=== PATIENT | female | born 1955 | race Caucasian/White ===

== ENCOUNTER 2017-07-24 07:52 | Day surgery (SDC) | payer MEDICARE, MEDICAID ==
[2017-07-24] MEDS ORDERED: Dextrose 5%-Lactated Ringers 1,000 ML IV SCH (08:30)
[2017-07-24] MEDS ORDERED: Glycopyrrolate 0.2 MG/ML 2 ML SDV IVPUSH ONE (09:00)
[2017-07-24] MEDS ORDERED: Midazolam 1 MG/ML 2 ML SDV ONE (09:25)
[2017-07-24] MEDS ORDERED: Propofol 200 MG/20 ML SDV ONE (09:25)
[2017-07-24] MEDS ORDERED: fentaNYL 100 MCG/2 ML SDV ONE (09:25)
[2017-07-24 10:47] VITALS: BP 78/47
--- NOTE | 2017-07-24 16:21 | OR ---
DATE OF PROCEDURE: 07/24/2017 PREOPERATIVE DIAGNOSIS: History of recurrent fungal esophagitis. POSTOPERATIVE DIAGNOSIS: Recurrent fungal esophagitis. OPERATIVE PROCEDURE: Upper GI endoscopy with washings for fungal stain and culture. ANESTHESIA: IV sedation. INDICATION FOR PROCEDURE: This is a 61-year-old presenting with a history of esophagitis with multiple episodes of antifungal treatment. She would undergo a GI endoscopy to see if she has persistent recurrent fungal esophagitis at this time. Potential risks including bleeding and perforation were reviewed, and the patient wishes to proceed. DETAILS OF PROCEDURE: The patient was taken to the operating room and placed in a left lateral decubitus position. IV sedation was administered, after which the upper GI endoscope was passed orally through the length of the esophagus and from there through the gastrojejunostomy and the small remaining gastric pouch and from there into the Ramiro limb roughly 20 cm. The findings included normal hypopharynx, larynx, and upper esophageal sphincter within the esophageal body, however, there was a diffuse fungal growth with multiple implants of overgrowth. This was associated with no gross inflammation. This continued down to more or less the length of the esophagus and at the gastrojejunostomy, gastric pouch, and Ramiro limbs, otherwise normal. At this point, saline was injected into the esophagus and the fluid aspirated and will be sent for fungal stain and culture. We will also ask that fungal sensitivities be obtained if felt appropriate by the lab based depending on the organism potentially cultured. The patient was taken to the recovery room in satisfactory condition. The plan will be to begin the patient on a course Mycostatin swish and swallow. The family does not recall her being on this, we will do that for 3 weeks and then in 4 weeks we will follow up that with a 2nd endoscopy to see if it is clear to that point. Kenneth White MD /[id number]
== END 2017-07-24 10:55 | disposition other institution (70) ==
LOC: JP.SDS 07:52
PROVIDERS: ATTEND Surgery
DX: K20.8 Other esophagitis (principal); Z88.8 Allergy status to other drugs, medicaments and biological substances
CPT/HCPCS: 43235; 87015; 87070; 87102; 87116; 87186; 87205; 87206; 87220; J2250; J2704; J3010; J7042; 87077; J3490

== ENCOUNTER 2017-08-21 08:07 | Day surgery (SDC) | payer MEDICARE, MEDICAID ==
[~2017-08-21 08:07] MED LIST: Midazolam 1 MG/ML 2 ML SDV ONE; Propofol 200 MG/20 ML SDV ONE; fentaNYL 100 MCG/2 ML SDV ONE
[2017-08-21] MEDS ORDERED: Dextrose 5%-Lactated Ringers 1,000 ML IV SCH (08:30)
[2017-08-21] MEDS ORDERED: Glycopyrrolate 0.2 MG/ML 2 ML SDV IVPUSH ONE (09:30)
[2017-08-21] MEDS ORDERED: Fluconazole/Normal Saline 400 MG in Premix Bag 1 BAG IV ONE (11:00)
[2017-08-21 12:00] VITALS: BP 83/41
--- NOTE | 2017-08-24 13:05 | OR ---
DATE OF PROCEDURE: 08/21/2017 PREOPERATIVE DIAGNOSIS: Probable persistent fungal esophagitis. POSTOPERATIVE DIAGNOSIS: Extensive fungal esophagitis. PROCEDURES: Upper GI endoscopy with evacuation of esophageal washings for fungal cultures. ANESTHESIA: IV sedation. INDICATION FOR PROCEDURE: The patient is undergoing followup endoscopy to see to what extent her fungal esophagitis has cleared. She has been off any antifungal medication for a period of time now, after having gone through a course of Mycostatin swish and swallow. This has been a problem. It has been present for decades with previous extensive workups regarding the fungal esophagitis, not being able to result in a correction of the problem. The plan is to do an upper GI endoscopy with biopsies and/or evacuation of the esophageal contents as indicated. Potential risks including bleeding and perforation were discussed, and the patient wishes to proceed. DETAILS OF PROCEDURE: The patient was taken to the operating room, placed in a left lateral decubitus position. IV sedation was administered, after which upper GI endoscope was passed orally through the length of the esophagus and into the gastric pouch, from there roughly 20 cm into the Ramiro limb. The hypopharynx, larynx, upper esophageal sphincter were unremarkable. The patient did have some hint of some thrush within the tongue; however, as one entered the esophagus, there was a quite fulminant overgrowth of fungus through the length of the esophagus. This became absent at the esophagogastric junction and the gastric pouch, gastrojejunostomy, and remainder of the Ramiro limb were unremarkable. At this point, some saline was injected into the esophagus and some of that fluid was evacuated, thus obtaining a fungal culture. We will plan to send this for a formal fungal culture and sensitivity to see if there is something that may be identified in terms of resistance of this organism as well as specific ID which may guide subsequent therapy. The scope was then withdrawn. The procedure then concluded. The patient's caregiver reports that in the past, long-term use of clotrimazole lozenges were effective in terms of maintaining the patient in a minimally symptomatic status. The plan will be to start that with a 10 mg dose t.i.d. as well as concurrently running a course of Diflucan 200 mg a day for 10 days and she will be following up with her personal physician. The caregiver at this point would prefer just to keep the patient on long-term clotrimazole rather than proceeding with followup endoscopy which seems to be reasonable given the previous history and will be following up with her personal physician as well as the gastroenterology staff in [place]. We will contact the patient and caregiver should there be something of note in terms of the fungal cultures and sensitivity. Kenneth White MD /[id number]
== END 2017-08-21 13:20 | disposition home or self-care (01) ==
LOC: JP.SDS 08:07
PROVIDERS: ATTEND Surgery
DX: K20.9 Esophagitis, unspecified (principal); B49 Unspecified mycosis; K21.9 Gastro-esophageal reflux disease without esophagitis; F17.210 Nicotine dependence, cigarettes, uncomplicated; J30.1 Allergic rhinitis due to pollen; Z98.890 Other specified postprocedural states
CPT/HCPCS: 43235; 87102; 87220; J1450; J2250; J2704; J3010; J7042; J3490

== ENCOUNTER 2018-02-05 06:46 | Inpatient (IN) | payer MEDICARE, MEDICAID ==
[2018-02-05] MEDS ORDERED: Bupivacaine 0.5%/EPINEPHrine 1:200,000 50 ML MDV ONE (06:51)
[2018-02-05] MEDS ORDERED: Acetaminophen 500 MG Tab PO ONE (07:15)
[2018-02-05] MEDS ORDERED: DEXAMETHASONE NERVRT SCH ×4 (08:00)
[2018-02-05] MEDS ORDERED: SODIUM CHLORIDE 0.9% NERVRT SCH ×4 (08:00)
[2018-02-05] MEDS ORDERED: ROPIVACAINE NERVRT SCH ×4 (08:00)
[2018-02-05] MEDS ORDERED: EPINEPHRINE NERVRT SCH ×4 (08:00)
[2018-02-05] MEDS ORDERED: Ketamine 500 MG/5 ML MDV IV SCH (08:00)
[2018-02-05] MEDS: Dextrose 5%-Lactated Ringers 1,000 ML IV SCH ×2 (08:09→21:05)
[2018-02-05] MEDS ORDERED: Midazolam 1 MG/ML 2 ML SDV ONE (08:40)
[2018-02-05] MEDS ORDERED: fentaNYL 250 MCG/5 ML SDV ONE (08:40)
[2018-02-05] MEDS ORDERED: Rocuronium 50 MG/5 ML Vial ONE (08:52)
[2018-02-05] MEDS ORDERED: Dexamethasone 4 MG/ML SDV ONE (08:52)
[2018-02-05] MEDS ORDERED: Ondansetron 4 MG/2 ML SDV ONE (08:52)
[2018-02-05] MEDS ORDERED: Neostigmine Methylsulfate 1 MG/ML 5 ML Syringe ONE (08:52)
[2018-02-05] MEDS ORDERED: Propofol 200 MG/20 ML SDV ONE (08:52)
[2018-02-05] MEDS ORDERED: Glycopyrrolate 0.2 MG/ML 5 ML MDV ONE (08:52)
[2018-02-05] MEDS ORDERED: cefOXitin 2 GM in Sodium Chloride 0.9% 50 ML IV ONE (09:00)
[2018-02-05] MEDS ORDERED: HYDROmorphone/Normal Saline 15 MG/30 ML PCA IV PRN (09:50)
[2018-02-05] MEDS ORDERED: Naloxone 0.4 MG/ML SDV IV PRN (09:51)
[2018-02-05] MEDS ORDERED: Ondansetron 4 MG/2 ML SDV IV PRN (11:08)
[2018-02-05] MEDS: Megestrol Susp 40 MG/ML ML (240 ML Bottle) PO SCH (12:19)
[2018-02-05] MEDS: Polyethylene Glycol 3350 Powder 17 GM Packet PO SCH (12:19)
[2018-02-05] MEDS: ceFAZolin 1 GM in Premix Bag 1 BAG IV SCH ×2 (13:58→21:06)
[2018-02-05] MEDS: LORazepam 1 MG Tab PO SCH (16:43)
[2018-02-05] MEDS: Donepezil 10 MG Tab PO SCH (21:08)
[2018-02-05] MEDS: QUETIAPINE PO SCH ×2 (21:08)
[2018-02-06] MEDS: ceFAZolin 1 GM in Premix Bag 1 BAG IV SCH (05:24)
[2018-02-06] MEDS: Dextrose 5%-Lactated Ringers 1,000 ML IV SCH ×2 (08:07→17:24)
[2018-02-06] MEDS: LORazepam 1 MG Tab PO SCH ×2 (08:08→17:22)
[2018-02-06] MEDS: Megestrol Susp 40 MG/ML ML (240 ML Bottle) PO SCH (08:08)
[2018-02-06] MEDS: Polyethylene Glycol 3350 Powder 17 GM Packet PO SCH (08:16)
[2018-02-06] MEDS ORDERED: diphenhydrAMINE 25 MG Cap PO PRN (08:18)
[2018-02-06] MEDS ORDERED: Acetaminophen 325 MG Tab PO PRN (08:21)
[2018-02-06] MEDS ORDERED: Polyethylene Glycol 3350 Powder 17 GM Packet PO PRN (08:22)
[2018-02-06] MEDS ORDERED: Dicyclomine 10 MG Cap PO PRN (08:22)
[2018-02-06] MEDS ORDERED: Ondansetron 4 MG Tab.DIS PO PRN (08:23)
--- NOTE | 2018-02-06 08:47 | PCM.PN ---
- General Info Date of Service: 02/06/18 Admission Dx/Problem (Free Text): Abnormal Weight Loss Subjective Update: Patient has had a total of 650 mL out of G tube. 1100 mL PO intake per nursing. Patient reports that she is feeling better today. Has had some nausea with dry heaves over night. Is tolerating diet so far this morning. Functional Status: Reports: Pain Controlled (notes mild discomfort), Tolerating Diet, Ambulating, Urinating - Review of Systems General: Reports: Chills HEENT: Reports: Other (dry mouth) Pulmonary: Reports: No Symptoms Cardiovascular: Reports: No Symptoms Gastrointestinal: Reports: Abdominal Pain, Nausea Genitourinary: Reports: No Symptoms Musculoskeletal: Reports: No Symptoms Skin: Reports: No Symptoms Neurological: Reports: No Symptoms Psychiatric: Reports: No Symptoms - Patient Data Vitals - Most Recent: Last Vital Signs Temp 36.6 C 02/06/18 07:34 Pulse 71 02/06/18 07:34 Resp 16 02/06/18 07:34 BP 102/50 L 02/06/18 07:34 Pulse Ox 99 02/06/18 08:34 Weight - Most Recent: 44.906 kg I&O - Last 24 Hours: Intake & Output 02/05/18 02/06/18 02/06/18 22:59 06:59 14:59 Intake Total 1716 1258 Output Total 300 750 500 Balance 1416 508 -500 Med Orders - Current: Current Medications Acetaminophen (Tylenol) 650 mg PO Q4H PRN PRN Reason: Pain Cetirizine HCl (Zyrtec) 10 mg PO DAILY [facility]ER[facility] Dicyclomine HCl (Bentyl) 10 mg PO Q4H PRN PRN Reason: Gas Diphenhydramine HCl (Benadryl) 50 mg PO Q6H PRN PRN Reason: Itching Donepezil HCl (Aricept) 5 mg PO BEDTIME [facility] Last Admin: 02/05/18 21:08 Dose: 5 mg Hydromorphone HCl (Dilaudid) 2 - 4 mg PO Q4H PRN PRN Reason: Pain Dextrose/Lactated Ringer's (Dextrose 5%-Lactated Ringers) 1,000 mls @ 100 mls/ hr IV ASDIRECTED [facility] Last Admin: 02/06/18 08:07 Dose: 100 mls/hr Levothyroxine Sodium (Synthroid) 50 mcg PO ACBRK [facility] Lorazepam (Ativan) 1 mg PO BID@0900,1600 [facility] Last Admin: 02/06/18 08:08 Dose: 1 mg Megestrol Acetate (Megace 40 Mg/Ml Susp) 400 mg PO DAILY [facility] Last Admin: 02/06/18 08:08 Dose: 400 mg Non-Formulary Medication (Docusate Sodium [Dok]) 200 mg PO BID [facility] Non-Formulary Medication (Lamotrigine [Lamictal]) 75 mg PO BID [facility] Non-Formulary Medication (Timolol [Betimol 0.5% Ophth Soln]) 1 drop EYEBOTH BEDTIME [facility] Ondansetron HCl (Zofran) 4 mg IV Q4H PRN PRN Reason: N/V Last Admin: 02/05/18 16:46 Dose: 4 mg Ondansetron HCl (Zofran Odt) 4 mg PO Q4H PRN PRN Reason: Nausea/Vomiting Polyethylene Glycol (Miralax) 17 gm PO DAILY [facility] Last Admin: 02/06/18 08:16 Dose: Not Given Polyethylene Glycol (Miralax) 17 gm PO DAILY PRN PRN Reason: Constipation Quetiapine Fumarate 600 mg/ (Quetiapine Fumarate 100 mg) 700 mg PO BEDTIME [facility] Last Admin: 02/05/18 21:08 Dose: 700 mg Discontinued Medications Acetaminophen (Tylenol Extra Strength) 1,000 mg PO ONETIME ONE Stop: 02/05/18 07:16 Last Admin: 02/05/18 07:24 Dose: 1,000 mg Bupivacaine HCl/Epinephrine Bitart (Marcaine 0.5%/Epinephrine 1:200,000) Confirm Administered Dose 50 ml .ROUTE .STK-MED ONE Stop: 02/05/18 06:52 Ropivacaine 24 ml/Dexamethasone 8 mg/Epinephrine HCl 0.4 mg/ Sodium Chloride 53.6 ml 0 ml NERVRT ASDIRECTED [facility] Last Admin: 02/05/18 09:11 Dose: 2 syringe Dexamethasone (Dexamethasone) Confirm Administered Dose 4 mg .ROUTE .STK-MED ONE Stop: 02/05/18 08:53 Fentanyl (Sublimaze) Confirm Administered Dose 250 mcg .ROUTE .STK-MED ONE Stop: 02/05/18 08:41 Glycopyrrolate (Robinul) Confirm Administered Dose 1 mg .ROUTE .STK-MED ONE Stop: 02/05/18 08:53 Hydromorphone HCl (Dilaudid [employer] 15 Mg In Ns 30 Ml) 0 mg IV ASDIRECTED PRN; Protocol PRN Reason: Pain Last Admin: 02/05/18 10:05 Dose: 0.3 mg Cefoxitin Sodium 2 gm/ Sodium (Chloride) 50 mls @ 100 mls/hr IV ONETIME ONE Stop: 02/05/18 09:29 Last Admin: 02/05/18 08:39 Dose: 100 mls/hr Cefazolin Sodium/Dextrose 1 gm (/ Premix) 50 mls @ 100 mls/hr IV Q8H TSERING Stop: 02/06/18 06:29 Last Admin: 02/06/18 05:24 Dose: 100 mls/hr Midazolam HCl (Versed 1 Mg/Ml) Confirm Administered Dose 2 mg .ROUTE .STK-MED ONE Stop: 02/05/18 08:41 Naloxone HCl (Narcan) 0.1 mg IV ASDIRECTED PRN PRN Reason: decreased respiratory rate Neostigmine Methylsulfate (Neostigmine) Confirm Administered Dose 5 mg .ROUTE .STK-MED ONE Stop: 02/05/18 08:53 Ondansetron HCl (Zofran) Confirm Administered Dose 4 mg .ROUTE .STK-MED ONE Stop: 02/05/18 08:53 Propofol (Diprivan 20 Ml) Confirm Administered Dose 200 mg .ROUTE .STK-MED ONE Stop: 02/05/18 08:53 Rocuronium [place] (Zemuron) Confirm Administered Dose 50 mg .ROUTE .STK-MED ONE Stop: 02/05/18 08:53 - Exam General: Alert, Oriented, Cooperative, No Acute Distress HEENT: Pupils Equal, Pupils Reactive, Mucous Membr. Moist/[place] Neck: Supple, Trachea Midline Lungs: Clear to Auscultation, Normal Respiratory Effort, Crackles (few crackles to bilateral bases ) Cardiovascular: Regular Rate, Regular Rhythm GI/Abdominal Exam: Normal Bowel Sounds, Tender (near gastrostomy tube site) (Female) Exam: Deferred Back Exam: Normal Inspection Extremities: Normal Inspection, Normal Range of Motion, Non-Tender, No Pedal Edema Skin: Warm, Dry, Intact Wound/Incisions: Healing Well, No Drainage Neurological: No New Focal Deficit Psy/Mental Status: Alert, Normal Affect, Normal Mood - Problem List & Annotations (1) Status post gastrostomy, current hospitalization SNOMED Code(s): 755545926, 32484565, 721689436 Code(s): Z93.1 - GASTROSTOMY STATUS Status: Acute Current Visit: Yes - Problem List Review Problem List Initiated/Reviewed/Updated: Yes - Assessment Assessment:: S/p Laparoscopic gastrostomy tube insertion due to abnormal weight loss - Plan Plan:: -Start Jevity 1.5 @ 40 mL/hr. This will be transitioned to bolus feedings prior to patient's discharge. -Start regular diet today. -Acetaminophen 650 mg PO q 4 hours prn for pain. -Dilaudid 2-4 mg PO q 4 hours prn for pain. -Bentyl 10 mg PO q 4 hours prn for gas. -Benadryl 50 mg PO q 6 hours prn for itching. -Docusate Sodium 200 mg PO BID. -Polyethylene Glycol 17 g PO daily prn for constipation. -Zofran 4 mg PO q 4 hours prn for nausea, vomiting.
[2018-02-06] MEDS: Docusate Sodium 100 MG Cap PO SCH ×2 (10:37→21:44)
[2018-02-06] MEDS: lamoTRIgine 25 MG Tab PO SCH ×2 (10:37→21:43)
[2018-02-06] MEDS: Levothyroxine 50 MCG Tab PO SCH (10:38)
[2018-02-06] MEDS: Cetirizine 10 MG Tab PO SCH (10:38)
[2018-02-06] MEDS ORDERED: Loperamide 1 MG/5 ML Soln 5 ML UD Cup PO PRN (12:15)
[2018-02-06] MEDS ORDERED: QUETIAPINE FUMARATE 400 MG PO SCH (21:00)
[2018-02-06] MEDS ORDERED: Non-Formulary Medication 1 Each (Donepezil [Aricept] 5 MG) PO SCH (21:00)
[2018-02-06] MEDS ORDERED: Non-Formulary Medication 1 Each (Timolol [Betimol 0.5% Ophth Soln] 1 DROP) EYEBOTH SCH (21:00)
[2018-02-06] MEDS: QUETIAPINE PO SCH ×2 (21:43)
[2018-02-06] MEDS: Donepezil 10 MG Tab PO SCH (21:44)
[2018-02-06] MEDS: TIMOLOL 0.5% EYEBOTH SCH (21:44)
[2018-02-07] MEDS: Dextrose 5%-Lactated Ringers 1,000 ML IV SCH ×3 (03:45→22:58)
[2018-02-07] MEDS: Levothyroxine 50 MCG Tab PO SCH (07:52)
[2018-02-07] MEDS: lamoTRIgine 25 MG Tab PO SCH ×2 (08:36→20:53)
[2018-02-07] MEDS: Polyethylene Glycol 3350 Powder 17 GM Packet PO SCH (08:36)
[2018-02-07] MEDS: Megestrol Susp 40 MG/ML ML (240 ML Bottle) PO SCH (08:36)
[2018-02-07] MEDS: Docusate Sodium 100 MG Cap PO SCH ×2 (08:36→20:53)
[2018-02-07] MEDS: Cetirizine 10 MG Tab PO SCH (08:36)
[2018-02-07] MEDS: LORazepam 1 MG Tab PO SCH ×2 (08:38→15:39)
--- NOTE | 2018-02-07 09:45 | PCM.PN ---
- General Info Date of Service: 02/07/18 Admission Dx/Problem (Free Text): abnormal weight loss Subjective Update: Patient reports that she is doing well today. She states that she only has pain at incision sites. She is tolerating diet well. Functional Status: Reports: Pain Controlled, Tolerating Diet, Ambulating, Urinating - Review of Systems General: Reports: No Symptoms HEENT: Reports: Sore Throat, Other (dry mouth) Pulmonary: Reports: No Symptoms Cardiovascular: Reports: No Symptoms Gastrointestinal: Reports: Abdominal Pain (at incision sites) Genitourinary: Reports: No Symptoms Musculoskeletal: Reports: No Symptoms Skin: Reports: No Symptoms Neurological: Reports: No Symptoms Psychiatric: Reports: No Symptoms - Patient Data Vitals - Most Recent: Last Vital Signs Temp 35.9 C 02/07/18 07:27 Pulse 77 02/07/18 07:27 Resp 16 02/07/18 07:27 BP 104/54 L 02/07/18 07:27 Pulse Ox 97 02/07/18 07:27 Weight - Most Recent: 44.906 kg I&O - Last 24 Hours: Intake & Output 02/06/18 02/07/18 02/07/18 22:59 06:59 14:59 Intake Total 1655 2205 Output Total 400 Balance 1255 2205 Med Orders - Current: Current Medications Acetaminophen (Tylenol) 650 mg PO Q4H PRN PRN Reason: Pain Cetirizine HCl (Zyrtec) 10 mg PO DAILY [facility] Last Admin: 02/07/18 08:36 Dose: 10 mg Dicyclomine HCl (Bentyl) 10 mg PO Q4H PRN PRN Reason: Gas Diphenhydramine HCl (Benadryl) 50 mg PO Q6H PRN PRN Reason: Itching Docusate Sodium (Colace) 200 mg PO BID [facility] Last Admin: 02/07/18 08:36 Dose: 200 mg Donepezil HCl (Aricept) 5 mg PO BEDTIME [facility] Last Admin: 02/06/18 21:44 Dose: 5 mg Hydromorphone HCl (Dilaudid) 2 - 4 mg PO Q4H PRN PRN Reason: Pain Dextrose/Lactated Ringer's (Dextrose 5%-Lactated Ringers) 1,000 mls @ 100 mls/ hr IV ASDIRECTED [facility] Last Admin: 02/07/18 03:45 Dose: 100 mls/hr Lamotrigine (Lamotrigine) 75 mg PO BID [facility] Last Admin: 02/07/18 08:36 Dose: 75 mg Levothyroxine Sodium (Synthroid) 50 mcg PO ACBRK [facility] Last Admin: 02/07/18 07:52 Dose: 50 mcg Loperamide HCl (Imodium) 2 mg PO ASDIRECTED PRN PRN Reason: LOOSE STOOL Lorazepam (Ativan) 1 mg PO BID@0900,1600 [facility] Last Admin: 02/07/18 08:38 Dose: 1 mg Megestrol Acetate (Megace 40 Mg/Ml Susp) 400 mg PO DAILY [facility] Last Admin: 02/07/18 08:36 Dose: 400 mg Ondansetron HCl (Zofran) 4 mg IV Q4H PRN PRN Reason: N/V Last Admin: 02/05/18 16:46 Dose: 4 mg Ondansetron HCl (Zofran Odt) 4 mg PO Q4H PRN PRN Reason: Nausea/Vomiting Timolol 0.5% Gfs (Opth Soln (Ptom)) 0 each EYEBOTH BEDTIME [facility] Last Admin: 02/06/18 21:44 Dose: 1 each Polyethylene Glycol (Miralax) 17 gm PO DAILY [facility] Last Admin: 02/07/18 08:36 Dose: 17 gm Polyethylene Glycol (Miralax) 17 gm PO DAILY PRN PRN Reason: Constipation Quetiapine Fumarate 600 mg/ (Quetiapine Fumarate 100 mg) 700 mg PO BEDTIME [facility] Last Admin: 02/06/18 21:43 Dose: 700 mg Discontinued Medications Acetaminophen (Tylenol Extra Strength) 1,000 mg PO ONETIME ONE Stop: 02/05/18 07:16 Last Admin: 02/05/18 07:24 Dose: 1,000 mg Bupivacaine HCl/Epinephrine Bitart (Marcaine 0.5%/Epinephrine 1:200,000) Confirm Administered Dose 50 ml .ROUTE .STK-MED ONE Stop: 02/05/18 06:52 Ropivacaine 24 ml/Dexamethasone 8 mg/Epinephrine HCl 0.4 mg/ Sodium Chloride 53.6 ml 0 ml NERVRT ASDIRECTED [facility] Last Admin: 02/05/18 09:11 Dose: 2 syringe Dexamethasone (Dexamethasone) Confirm Administered Dose 4 mg .ROUTE .STK-MED ONE Stop: 02/05/18 08:53 Fentanyl (Sublimaze) Confirm Administered Dose 250 mcg .ROUTE .STK-MED ONE Stop: 02/05/18 08:41 Glycopyrrolate (Robinul) Confirm Administered Dose 1 mg .ROUTE .STK-MED ONE Stop: 02/05/18 08:53 Hydromorphone HCl (Dilaudid [employer] 15 Mg In Ns 30 Ml) 0 mg IV ASDIRECTED PRN; Protocol PRN Reason: Pain Last Admin: 02/05/18 10:05 Dose: 0.3 mg Cefoxitin Sodium 2 gm/ Sodium (Chloride) 50 mls @ 100 mls/hr IV ONETIME ONE Stop: 02/05/18 09:29 Last Admin: 02/05/18 08:39 Dose: 100 mls/hr Cefazolin Sodium/Dextrose 1 gm (/ Premix) 50 mls @ 100 mls/hr IV Q8H TSERING Stop: 02/06/18 06:29 Last Admin: 02/06/18 05:24 Dose: 100 mls/hr Midazolam HCl (Versed 1 Mg/Ml) Confirm Administered Dose 2 mg .ROUTE .STK-MED ONE Stop: 02/05/18 08:41 Naloxone HCl (Narcan) 0.1 mg IV ASDIRECTED PRN PRN Reason: decreased respiratory rate Neostigmine Methylsulfate (Neostigmine) Confirm Administered Dose 5 mg .ROUTE .STK-MED ONE Stop: 02/05/18 08:53 Ondansetron HCl (Zofran) Confirm Administered Dose 4 mg .ROUTE .STK-MED ONE Stop: 02/05/18 08:53 Propofol (Diprivan 20 Ml) Confirm Administered Dose 200 mg .ROUTE .STK-MED ONE Stop: 02/05/18 08:53 Rocuronium [place] (Zemuron) Confirm Administered Dose 50 mg .ROUTE .STK-MED ONE Stop: 02/05/18 08:53 - Exam General: Alert, Oriented, Cooperative, No Acute Distress HEENT: Pupils Equal, Pupils Reactive, Other (tongue with white plaque covering anterior surface) Neck: Supple, Trachea Midline Lungs: Clear to Auscultation, Normal Respiratory Effort Cardiovascular: Regular Rate, Regular Rhythm GI/Abdominal Exam: Normal Bowel Sounds, Soft, No Distention, Tender (at incision sites) (Female) Exam: Deferred Back Exam: Normal Inspection Extremities: Normal Inspection Skin: Warm, Dry, Intact Wound/Incisions: Healing Well, No Drainage Neurological: No New Focal Deficit Psy/Mental Status: Alert, Normal Affect, Normal Mood - Problem List & Annotations (1) Status post gastrostomy, current hospitalization SNOMED Code(s): 904504336, [id number], [id number] Code(s): Z93.1 - GASTROSTOMY STATUS Status: Acute Current Visit: Yes - Problem List Review Problem List Initiated/Reviewed/Updated: Yes - Assessment Assessment:: S/p Laparoscopic gastrostomy tube insertion due to abnormal weight loss - Plan Plan:: -Continue Jevity 1.5 @ 40 mL/hr until 7 pm. Then turn rate up to 60 mL/hr until 7 am tomorrow (02/08/18). Stop TF at 7 am and restart at 7 pm (02/08/18) at 80 mL/ hr. -Nystatin 5 mL PO QID for oral candidiasis.
[2018-02-07] MEDS: Nystatin Susp 100,000 Unit/ML 5 ML UD Cup PO SCH ×3 (12:11→21:00)
--- NOTE | 2018-02-07 14:07 | PN ---
DATE OF SERVICE: 02/07/2018 Reshma will be discharged on gastrostomy tube feedings for postoperative malabsorption, history of partial gastrectomy, severe malnutrition, weight loss, and BMI of 17. Length of gastrostomy tube feeding greater than 90 days. Jaida Thomas PA-C /[id number]
[2018-02-07] MEDS: HYDROmorphone 2 MG Tab PO PRN (16:55)
[2018-02-07] MEDS: Donepezil 10 MG Tab PO SCH (20:53)
[2018-02-07] MEDS: TIMOLOL 0.5% EYEBOTH SCH (20:53)
[2018-02-07] MEDS: QUETIAPINE PO SCH ×2 (20:54)
[2018-02-08] MEDS: Nystatin Susp 100,000 Unit/ML 5 ML UD Cup PO SCH ×4 (05:08→21:36)
[2018-02-08] MEDS: Levothyroxine 50 MCG Tab PO SCH (07:14)
[2018-02-08] MEDS: HYDROmorphone 2 MG Tab PO PRN ×2 (07:27→21:15)
[2018-02-08] MEDS ORDERED: Clotrimazole 10 MG Troche PO SCH ×3 (08:00→21:00)
[2018-02-08] MEDS: LORazepam 1 MG Tab PO SCH ×2 (09:15→15:12)
[2018-02-08] MEDS: Docusate Sodium 100 MG Cap PO SCH ×2 (09:15→21:33)
[2018-02-08] MEDS: Polyethylene Glycol 3350 Powder 17 GM Packet PO SCH (09:16)
[2018-02-08] MEDS: lamoTRIgine 25 MG Tab PO SCH ×2 (09:16→21:34)
[2018-02-08] MEDS: Cetirizine 10 MG Tab PO SCH (09:16)
[2018-02-08] MEDS: Megestrol Susp 40 MG/ML ML (240 ML Bottle) PO SCH (09:17)
--- NOTE | 2018-02-08 11:41 | PCM.SURGPN ---
- General Info Date of Service: 02/08/18 Date of Surgery/Procedure: 02/06/18 POD#: 2 Post-Op Diagnosis: abnormal weight loss Admission Diagnosis/Problem: Weight loss Functional Status: Reports: Pain Controlled, Tolerating Diet, Ambulating, Urinating - Review of Systems General: Reports: No Symptoms HEENT: Reports: Sore Throat, Other (dry mouth and taste changes) Pulmonary: Reports: No Symptoms Cardiovascular: Reports: No Symptoms Gastrointestinal: Reports: Abdominal Pain (at incision sites), Flatus, Nausea ( slightly with ambulation) Genitourinary: Reports: No Symptoms Musculoskeletal: Reports: No Symptoms Skin: Reports: No Symptoms Neurological: Reports: No Symptoms Psychiatric: Reports: Anxiety Systems Review Comment:: Patient reports that she continues to have a funny taste and sore throat today related to her thrush. She states that she is tolerating her diet and doing well otherwise. - Patient Data Vitals - Most Recent: Last Vital Signs Temp 36.6 C 02/08/18 10:45 Pulse 81 02/08/18 10:45 Resp 16 02/08/18 10:45 BP 96/48 L 02/08/18 10:45 Pulse Ox 97 02/08/18 10:45 Weight - Most Recent: 49.351 kg I&O - Last 24 Hours: Intake & Output 02/07/18 02/08/18 02/08/18 22:59 06:59 14:59 Intake Total 2373 2127 704 Output Total 1001 1400 Balance 1372 727 704 Med Orders - Current: Current Medications Acetaminophen (Tylenol) 650 mg PO Q4H PRN PRN Reason: Pain Cetirizine HCl (Zyrtec) 10 mg PO DAILY [facility] Last Admin: 02/08/18 09:16 Dose: 10 mg Clotrimazole (Mycelex) 10 mg PO Q48H [facility] Last Admin: 02/08/18 07:17 Dose: 10 mg Clotrimazole (Mycelex) 10 mg PO Q48H [facility] Clotrimazole (Mycelex) 10 mg PO Q48H [facility] Dicyclomine HCl (Bentyl) 10 mg PO Q4H PRN PRN Reason: Gas Diphenhydramine HCl (Benadryl) 50 mg PO Q6H PRN PRN Reason: Itching Docusate Sodium (Colace) 200 mg PO BID [facility] Last Admin: 02/08/18 09:15 Dose: 200 mg Donepezil HCl (Aricept) 5 mg PO BEDTIME [facility] Last Admin: 02/07/18 20:53 Dose: 5 mg Hydromorphone HCl (Dilaudid) 2 - 4 mg PO Q4H PRN PRN Reason: Pain Last Admin: 02/08/18 07:27 Dose: 2 mg Lamotrigine (Lamotrigine) 75 mg PO BID [facility] Last Admin: 02/08/18 09:16 Dose: 75 mg Levothyroxine Sodium (Synthroid) 50 mcg PO ACBRK [facility] Last Admin: 02/08/18 07:14 Dose: 50 mcg Loperamide HCl (Imodium) 2 mg PO ASDIRECTED PRN PRN Reason: LOOSE STOOL Lorazepam (Ativan) 1 mg PO BID@0900,1600 [facility] Last Admin: 02/08/18 09:15 Dose: 1 mg Megestrol Acetate (Megace 40 Mg/Ml Susp) 400 mg PO DAILY [facility] Last Admin: 02/08/18 09:17 Dose: 400 mg Nystatin (Mycostatin) 5 ml PO QID [facility] Last Admin: 02/08/18 10:12 Dose: 5 ml Ondansetron HCl (Zofran) 4 mg IV Q4H PRN PRN Reason: N/V Last Admin: 02/05/18 16:46 Dose: 4 mg Ondansetron HCl (Zofran Odt) 4 mg PO Q4H PRN PRN Reason: Nausea/Vomiting Timolol 0.5% Gfs (Opth Soln (Ptom)) 0 each EYEBOTH BEDTIME [facility] Last Admin: 02/07/18 20:53 Dose: 1 each Polyethylene Glycol (Miralax) 17 gm PO DAILY [facility] Last Admin: 02/08/18 09:16 Dose: 17 gm Polyethylene Glycol (Miralax) 17 gm PO DAILY PRN PRN Reason: Constipation Quetiapine Fumarate 600 mg/ (Quetiapine Fumarate 100 mg) 700 mg PO BEDTIME [facility] Last Admin: 02/07/18 20:54 Dose: 700 mg Discontinued Medications Acetaminophen (Tylenol Extra Strength) 1,000 mg PO ONETIME ONE Stop: 02/05/18 07:16 Last Admin: 02/05/18 07:24 Dose: 1,000 mg Bupivacaine HCl/Epinephrine Bitart (Marcaine 0.5%/Epinephrine 1:200,000) Confirm Administered Dose 50 ml .ROUTE .STK-MED ONE Stop: 02/05/18 06:52 Ropivacaine 24 ml/Dexamethasone 8 mg/Epinephrine HCl 0.4 mg/ Sodium Chloride 53.6 ml 0 ml NERVRT ASDIRECTED [facility] Last Admin: 02/05/18 09:11 Dose: 2 syringe Dexamethasone (Dexamethasone) Confirm Administered Dose 4 mg .ROUTE .STK-MED ONE Stop: 02/05/18 08:53 Fentanyl (Sublimaze) Confirm Administered Dose 250 mcg .ROUTE .STK-MED ONE Stop: 02/05/18 08:41 Glycopyrrolate (Robinul) Confirm Administered Dose 1 mg .ROUTE .[facility]-MED ONE Stop: 02/05/18 08:53 Hydromorphone HCl (Dilaudid [employer] Bever[employer] Assistant Manager 15 Mg In Ns 30 Ml) 0 mg IV ASDIRECTED PRN; Protocol PRN Reason: Pain Last Admin: 02/05/18 10:05 Dose: 0.3 mg Dextrose/Lactated Ringer's (Dextrose 5%-Lactated Ringers) 1,000 mls @ 100 mls/ hr IV ASDIRECTED [facility] Last Admin: 02/07/18 22:58 Dose: 100 mls/hr Cefoxitin Sodium 2 gm/ Sodium (Chloride) 50 mls @ 100 mls/hr IV ONETIME ONE Stop: 02/05/18 09:29 Last Admin: 02/05/18 08:39 Dose: 100 mls/hr Cefazolin Sodium/Dextrose 1 gm (/ Premix) 50 mls @ 100 mls/hr IV Q8H [facility] Stop: 02/06/18 06:29 Last Admin: 02/06/18 05:24 Dose: 100 mls/hr Midazolam HCl (Versed 1 Mg/Ml) Confirm Administered Dose 2 mg .ROUTE .STK-MED ONE Stop: 02/05/18 08:41 Naloxone HCl (Narcan) 0.1 mg IV ASDIRECTED PRN PRN Reason: decreased respiratory rate Neostigmine Methylsulfate (Neostigmine) Confirm Administered Dose 5 mg .ROUTE .STK-MED ONE Stop: 02/05/18 08:53 Ondansetron HCl (Zofran) Confirm Administered Dose 4 mg .ROUTE .STK-MED ONE Stop: 02/05/18 08:53 Propofol (Diprivan 20 Ml) Confirm Administered Dose 200 mg .ROUTE .STK-MED ONE Stop: 02/05/18 08:53 Rocuronium [place] (Zemuron) Confirm Administered Dose 50 mg .ROUTE .STK-MED ONE Stop: 02/05/18 08:53 - Exam Wound/Incisions: Healing Well General: Alert, Oriented, Cooperative, No Acute Distress HEENT: Other (tongue with white plaque on anterior surface of tongue. improved since yesterday) Neck: Supple, Trachea Midline Lungs: Clear to Auscultation, Normal Respiratory Effort Cardiovascular: Regular Rate, Regular Rhythm GI/Abdominal Exam: Normal Bowel Sounds, Soft, Tender (to incision sites) Extremities: Normal Inspection, Normal Range of Motion, No Pedal Edema Skin: Warm, Dry, Intact Neurological: No New Focal Deficit Psy/Mental Status: Alert, Normal Affect, Normal Mood - Problem List & Annotations (1) Status post gastrostomy, current hospitalization SNOMED Code(s): 089475528, 57826648, 788128287 Code(s): Z93.1 - GASTROSTOMY STATUS Status: Acute Priority: Medium Current Visit: Yes - Problem List Review Problem List Initiated/Reviewed/Updated: Yes - My Orders Last 24 Hours: Active Orders 24 hr Category Date Time Status Enteral Feedings [RC] 2100 Care 02/07/18 14:45 Active May Shower [RC] ASDIRECTED Care 02/08/18 07:46 Active Clotrimazole [Mycelex] Med 02/08/18 08:00 Active 10 mg PO Q48H Clotrimazole [Mycelex] Med 02/08/18 14:00 Active 10 mg PO Q48H Clotrimazole [Mycelex] Med 02/08/18 21:00 Active 10 mg PO Q48H Nystatin [Mycostatin] Med 02/07/18 10:45 Active 5 ml PO QID Convert IV to Saline Lock [OM.PC] Routine Oth 02/08/18 07:46 Ordered Oral Care [OM.PC] BID Oth 02/07/18 11:00 Ordered Oral Care [OM.PC] BID Oth 02/08/18 11:00 Ordered Oral Care [OM.PC] BID Oth 02/09/18 11:00 Ordered Oral Care [OM.PC] BID Oth 02/10/18 11:00 Ordered Oral Care [OM.PC] BID Oth 02/11/18 11:00 Ordered Oral Care [OM.PC] BID Oth 02/12/18 11:00 Ordered Oral Care [OM.PC] BID Oth 02/13/18 11:00 Ordered Oral Care [OM.PC] BID Oth 02/14/18 11:00 Ordered Remove Dressing [OM.PC] Routine Oth 02/08/18 07:46 Ordered Medication Orders Acetaminophen (Tylenol) 650 mg PO Q4H PRN PRN Reason: Pain Cetirizine HCl (Zyrtec) 10 mg PO DAILY [facility] Last Admin: 02/08/18 09:16 Dose: 10 mg Admin: 02/07/18 08:36 Dose: 10 mg Admin: 02/06/18 10:38 Dose: 10 mg Clotrimazole (Mycelex) 10 mg PO Q48H [facility] Last Admin: 02/08/18 07:17 Dose: 10 mg Clotrimazole (Mycelex) 10 mg PO Q48H [facility] Clotrimazole (Mycelex) 10 mg PO Q48H [facility] Dicyclomine HCl (Bentyl) 10 mg PO Q4H PRN PRN Reason: Gas Diphenhydramine HCl (Benadryl) 50 mg PO Q6H PRN PRN Reason: Itching Docusate Sodium (Colace) 200 mg PO BID [facility] Last Admin: 02/08/18 09:15 Dose: 200 mg Admin: 02/07/18 20:53 Dose: 200 mg Admin: 02/07/18 08:36 Dose: 200 mg Admin: 02/06/18 21:44 Dose: 200 mg Admin: 02/06/18 10:37 Dose: 200 mg Donepezil HCl (Aricept) 5 mg PO BEDTIME [facility] Last Admin: 02/07/18 20:53 Dose: 5 mg Admin: 02/06/18 21:44 Dose: 5 mg Admin: 02/05/18 21:08 Dose: 5 mg Hydromorphone HCl (Dilaudid) 2 - 4 mg PO Q4H PRN PRN Reason: Pain Last Admin: 02/08/18 07:27 Dose: 2 mg Admin: 02/07/18 16:55 Dose: 2 mg Lamotrigine (Lamotrigine) 75 mg PO BID [facility] Last Admin: 02/08/18 09:16 Dose: 75 mg Admin: 02/07/18 20:53 Dose: 75 mg Admin: 02/07/18 08:36 Dose: 75 mg Admin: 02/06/18 21:43 Dose: 75 mg Admin: 02/06/18 10:37 Dose: 75 mg Levothyroxine Sodium (Synthroid) 50 mcg PO ACBRK [facility] Last Admin: 02/08/18 07:14 Dose: 50 mcg Admin: 02/07/18 07:52 Dose: 50 mcg Admin: 02/06/18 10:38 Dose: 50 mcg Loperamide HCl (Imodium) 2 mg PO ASDIRECTED PRN PRN Reason: LOOSE STOOL Lorazepam (Ativan) 1 mg PO BID@0900,1600 [facility] Last Admin: 02/08/18 09:15 Dose: 1 mg Admin: 02/07/18 15:39 Dose: 1 mg Admin: 02/07/18 08:38 Dose: 1 mg Admin: 02/06/18 17:22 Dose: 1 mg Admin: 02/06/18 08:08 Dose: 1 mg Admin: 02/05/18 16:43 Dose: 1 mg Megestrol Acetate (Megace 40 Mg/Ml Susp) 400 mg PO DAILY [facility] Last Admin: 02/08/18 09:17 Dose: 400 mg Admin: 02/07/18 08:36 Dose: 400 mg Admin: 02/06/18 08:08 Dose: 400 mg Admin: 02/05/18 12:19 Dose: 400 mg Nystatin (Mycostatin) 5 ml PO QID [facility] Last Admin: 02/08/18 10:12 Dose: 5 ml Admin: 02/08/18 05:08 Dose: 5 ml Admin: 02/07/18 21:00 Dose: 5 ml Admin: 02/07/18 15:39 Dose: 5 ml Admin: 02/07/18 12:11 Dose: 5 ml Ondansetron HCl (Zofran) 4 mg IV Q4H PRN PRN Reason: N/V Last Admin: 02/05/18 16:46 Dose: 4 mg Ondansetron HCl (Zofran Odt) 4 mg PO Q4H PRN PRN Reason: Nausea/Vomiting Timolol 0.5% Gfs (Opth Soln (Ptom)) 0 each EYEBOTH BEDTIME [facility] Last Admin: 02/07/18 20:53 Dose: 1 each Admin: 02/06/18 21:44 Dose: 1 each Polyethylene Glycol (Miralax) 17 gm PO DAILY [facility] Last Admin: 02/08/18 09:16 Dose: 17 gm Admin: 02/07/18 08:36 Dose: 17 gm Admin: 02/06/18 08:16 Dose: Not Given Admin: 02/05/18 12:19 Dose: 17 gm Polyethylene Glycol (Miralax) 17 gm PO DAILY PRN PRN Reason: Constipation Quetiapine Fumarate 600 mg/ (Quetiapine Fumarate 100 mg) 700 mg PO BEDTIME [facility] Last Admin: 02/07/18 20:54 Dose: 700 mg Admin: 02/06/18 21:43 Dose: 700 mg Admin: 02/05/18 21:08 Dose: 700 mg - Assessment Assessment (Free Text/Narrative):: S/p laparoscopic gastrostomy tube insertion due to abnormal weight loss - Plan Plan (Free Text/Narrative):: -Jevity 1.5 @ 80 mL/hr from 9 pm to 9 am (12 hours overnight) -IV saline lock. -Remove dressing and may shower. -Reshma will be discharged on gastrostomy tube feedings for postoperative malabsorption, history of partial gastrectomy, severe malnutrition, weight loss and BMI of 17. Length of gastrostomy tube feedings greater than 90 days.
[2018-02-08] MEDS: TIMOLOL 0.5% EYEBOTH SCH (21:33)
[2018-02-08] MEDS: Donepezil 10 MG Tab PO SCH (21:34)
[2018-02-08] MEDS ORDERED: QUEtiapine 100 MG Tab ONE (21:44)
[2018-02-08] MEDS: QUETIAPINE PO SCH ×2 (21:52)
[2018-02-09] MEDS: Nystatin Susp 100,000 Unit/ML 5 ML UD Cup PO SCH ×2 (05:37→09:17)
[2018-02-09] MEDS: Levothyroxine 50 MCG Tab PO SCH (07:35)
[2018-02-09] MEDS: LORazepam 1 MG Tab PO SCH (09:15)
[2018-02-09] MEDS: Cetirizine 10 MG Tab PO SCH (09:16)
[2018-02-09] MEDS: Docusate Sodium 100 MG Cap PO SCH (09:16)
[2018-02-09] MEDS: Megestrol Susp 40 MG/ML ML (240 ML Bottle) PO SCH (09:16)
[2018-02-09] MEDS: lamoTRIgine 25 MG Tab PO SCH (09:16)
[2018-02-09] MEDS: Polyethylene Glycol 3350 Powder 17 GM Packet PO SCH (09:17)
[2018-02-09 13:46] VITALS: BP 100/55
--- NOTE | 2018-02-09 14:25 | PCM.DCSUM1 ---
Discharge Summary - Hospital Course Brief History: Patient was admitted on 02/05/2018 for gastrostomy tube placement due to abnormal weight loss, malnutrition. She underwent laparoscopic surgery on 02/06/2018 and tolerated the procedure well. She was started on a regular diet with tube feedings of Jevity 1.5 at 40 mL/hr on 02/07/2018. She tolerated the tube feedings well and this was advanced to goal of 80 mL/hr (over 12 hours ) on 02/08/2018. She developed oral candidiasis and was started on nystatin QID. Symptoms of this improved. She will continue tube feedings over night (12 hours ) at her longterm and return to clinic next Monday, February 14. - Discharge Data Discharge Date: 02/09/18 Discharge Disposition: DC/Tfer to [facility]04 Condition: Good - Discharge Diagnosis/Problem(s) (1) Status post gastrostomy, current hospitalization SNOMED Code(s): 761096965, [id number], [id number] ICD Code: Z93.1 - GASTROSTOMY STATUS Status: Acute Priority: Medium Current Visit: Yes - Patient Summary/Data Consults: Consultations 02/05/18 10:54 Respiratory Care Assess and Treatment [CONS] Routine Comment: Physician Instructions: Post -Op Pneumonia Prevention 02/05/18 11:02 Consult to Dietary [Consult to Manager Core] [CONS] Routine Comment: Physician Instructions: set up bolus regimen after continuous infusion Quantity: 1 Reason for Consult: set up bolus regimen after continuous infusion after 1-2 days Person Notified: Gale Blanton - in discharge planning Date Notified: 02/05/18 Time Notified: 11:00 - Patient Instructions Diet: Usual Diet as Tolerated, Drink 8-10+ Glasses/Day Activity: As Tolerated, No Lifting Over 10 Pounds Showering/Bathing: May Shower Wound/Incision Care: Keep Operative Site/Wound Site Clean and Dry Notify Provider of: Fever, Increased Pain, Nausea and/or Vomiting Other/Special Instructions: 1. [facility] to take care of Gastrostomy Tube Feedings. To run from 0900 to 2100. Flush with water as directed. Lab tests through [facility]. 2. Use incentive inspirometer 10 times every hour while awake for 1 week. - Discharge Plan Prescriptions/Med Rec: HYDROmorphone [Dilaudid] 2 - 4 mg PO Q4H PRN #20 tablet PRN Reason: Pain Home Medications: Home Meds Cetirizine HCl [Zyrtec] 10 mg PO DAILY 01/14/14 [History] Levothyroxine [Synthroid] 50 mcg PO ACBRK 01/14/14 [History] lamoTRIgine [Lamictal] 75 mg PO BID 01/14/14 [History] Clotrimazole [Mycelex] 10 mg PO .TIDQOD 09/05/16 [History] Clobetasol [Temovate 0.05% Oint] 15 gm TOP BID 09/27/16 [History] Donepezil [Aricept] 5 mg PO BEDTIME 09/27/16 [History] LORazepam [Ativan] 1 mg PO BID 09/27/16 [History] Multivitamin W/Iron, Minerals [Flintstones Complete] 1 each PO BID #100 tab.chew 10/03/16 [Rx] Ondansetron [Zofran] 4 mg PO Q4HR PRN 07/21/17 [History] Polyethylene Glycol 3350 [MiraLAX] 17 gm PO DAILY PRN 07/21/17 [History] Cyanocobalamin (Vitamin B-12) [B-12] 2,500 mcg PO DAILY 02/01/18 [History] Dicyclomine [Bentyl] 10 mg PO Q4H PRN 02/01/18 [History] Docusate Sodium [DOK] 200 mg PO BID 02/01/18 [History] QUEtiapine Fumarate [Seroquel Xr] 400 mg PO BEDTIME 02/01/18 [History] QUEtiapine [SEROquel] 300 mg PO BEDTIME 02/01/18 [History] Thiamine [Vitamin B-1] 100 mg PO DAILY 02/01/18 [History] Calcium Phosphate Trib/Vit D3 [Citracal + D3 Gummies] 1 tab PO BID 02/05/18 [ History] Ferrous Fumarate/Vitamin C [Vitron-C] 1 tab PO BID 02/05/18 [History] Timolol [Betimol 0.5% Ophth Soln] 1 drop EYEBOTH BEDTIME 02/05/18 [History] Acetaminophen [Tylenol] 650 mg PO Q4H PRN tablet 02/09/18 [Rx] HYDROmorphone [Dilaudid] 2 - 4 mg PO Q4H PRN #20 tablet 02/09/18 [Rx] Megestrol [Megace 40 MG/ML Susp] 10 ml PO BID #0 02/09/18 [Rx] Referrals: Jaida Thomas PA-C [Physician Blog Writer] - 02/14/18 10:00 am - General Info Date of Service: 02/09/18 Admission Dx/Problem (Free Text: abnormal weight loss Subjective Update: Patient reports that she is feeling well today. Is tolerating her diet as well as TF. Continues to have taste changes and somewhat sore throat, but improved. She feels ready to discharge home. Functional Status: Reports: Pain Controlled, Tolerating Diet, Ambulating, Urinating - Review of Systems General: Reports: No Symptoms HEENT: Reports: Sore Throat (dry mouth and taste changes) Pulmonary: Reports: No Symptoms Cardiovascular: Reports: No Symptoms Gastrointestinal: Reports: No Symptoms Genitourinary: Reports: No Symptoms Musculoskeletal: Reports: No Symptoms Skin: Reports: No Symptoms Neurological: Reports: No Symptoms Psychiatric: Reports: No Symptoms - Patient Data Vitals - Most Recent: Last Vital Signs Temp 36.8 C 02/09/18 12:00 Pulse 83 02/09/18 12:00 Resp 20 02/09/18 12:00 BP 100/55 L 02/09/18 12:00 Pulse Ox 99 02/09/18 12:00 Weight - Most Recent: 48.988 kg I&O - Last 24 hours: Intake & Output 02/08/18 02/09/18 02/09/18 22:59 06:59 14:59 Intake Total 320 736 360 Output Total 700 300 Balance -380 736 60 Med Orders - Current: Current Medications Acetaminophen (Tylenol) 650 mg PO Q4H PRN PRN Reason: Pain Cetirizine HCl (Zyrtec) 10 mg PO DAILY [facility] Last Admin: 02/09/18 09:16 Dose: 10 mg Clotrimazole (Mycelex) 10 mg PO Q48H [facility] Last Admin: 02/08/18 07:17 Dose: 10 mg Clotrimazole (Mycelex) 10 mg PO Q48H [facility] Last Admin: 02/08/18 13:14 Dose: 10 mg Clotrimazole (Mycelex) 10 mg PO Q48H [facility] Last Admin: 02/08/18 21:34 Dose: 10 mg Dicyclomine HCl (Bentyl) 10 mg PO Q4H PRN PRN Reason: Gas Diphenhydramine HCl (Benadryl) 50 mg PO Q6H PRN PRN Reason: Itching Docusate Sodium (Colace) 200 mg PO BID [facility] Last Admin: 02/09/18 09:16 Dose: 200 mg Donepezil HCl (Aricept) 5 mg PO BEDTIME [facility] Last Admin: 02/08/18 21:34 Dose: 5 mg Hydromorphone HCl (Dilaudid) 2 - 4 mg PO Q4H PRN PRN Reason: Pain Last Admin: 02/08/18 21:15 Dose: 2 mg Lamotrigine (Lamotrigine) 75 mg PO BID [facility] Last Admin: 02/09/18 09:16 Dose: 75 mg Levothyroxine Sodium (Synthroid) 50 mcg PO ACBRK [facility] Last Admin: 02/09/18 07:35 Dose: 50 mcg Loperamide HCl (Imodium) 2 mg PO ASDIRECTED PRN PRN Reason: LOOSE STOOL Lorazepam (Ativan) 1 mg PO BID@0900,1600 [facility] Last Admin: 02/09/18 09:15 Dose: 1 mg Megestrol Acetate (Megace 40 Mg/Ml Susp) 400 mg PO DAILY [facility] Last Admin: 02/09/18 09:16 Dose: 400 mg Nystatin (Mycostatin) 5 ml PO QID [facility] Last Admin: 02/09/18 09:17 Dose: 5 ml Ondansetron HCl (Zofran) 4 mg IV Q4H PRN PRN Reason: N/V Last Admin: 02/05/18 16:46 Dose: 4 mg Ondansetron HCl (Zofran Odt) 4 mg PO Q4H PRN PRN Reason: Nausea/Vomiting Timolol 0.5% Gfs (Opth Soln (Ptom)) 0 each EYEBOTH BEDTIME [facility] Last Admin: 02/08/18 21:33 Dose: 1 each Polyethylene Glycol (Miralax) 17 gm PO DAILY [facility] Last Admin: 02/09/18 09:17 Dose: 17 gm Polyethylene Glycol (Miralax) 17 gm PO DAILY PRN PRN Reason: Constipation Last Admin: 02/09/18 09:16 Dose: 17 gm Quetiapine Fumarate 600 mg/ (Quetiapine Fumarate 100 mg) 700 mg PO BEDTIME [facility] Last Admin: 02/08/18 21:52 Dose: 700 mg Discontinued Medications Acetaminophen (Tylenol Extra Strength) 1,000 mg PO ONETIME ONE Stop: 02/05/18 07:16 Last Admin: 02/05/18 07:24 Dose: 1,000 mg Bupivacaine HCl/Epinephrine Bitart (Marcaine 0.5%/Epinephrine 1:200,000) Confirm Administered Dose 50 ml .ROUTE .STK-MED ONE Stop: 02/05/18 06:52 Ropivacaine 24 ml/Dexamethasone 8 mg/Epinephrine HCl 0.4 mg/ Sodium Chloride 53.6 ml 0 ml NERVRT ASDIRECTED [facility] Last Admin: 02/05/18 09:11 Dose: 2 syringe Dexamethasone (Dexamethasone) Confirm Administered Dose 4 mg .ROUTE .STK-MED ONE Stop: 02/05/18 08:53 Fentanyl (Sublimaze) Confirm Administered Dose 250 mcg .ROUTE .STK-MED ONE Stop: 02/05/18 08:41 Glycopyrrolate (Robinul) Confirm Administered Dose 1 mg .ROUTE .STK-MED ONE Stop: 02/05/18 08:53 Hydromorphone HCl (Dilaudid Glass Technician/Installer 15 Mg In Ns 30 Ml) 0 mg IV ASDIRECTED PRN; Protocol PRN Reason: Pain Last Admin: 02/05/18 10:05 Dose: 0.3 mg Dextrose/Lactated Ringer's (Dextrose 5%-Lactated Ringers) 1,000 mls @ 100 mls/ hr IV ASDIRECTED [facility] Last Admin: 02/07/18 22:58 Dose: 100 mls/hr Cefoxitin Sodium 2 gm/ Sodium (Chloride) 50 mls @ 100 mls/hr IV ONETIME ONE Stop: 02/05/18 09:29 Last Admin: 02/05/18 08:39 Dose: 100 mls/hr Cefazolin Sodium/Dextrose 1 gm (/ Premix) 50 mls @ 100 mls/hr IV Q8H [facility] Stop: 02/06/18 06:29 Last Admin: 02/06/18 05:24 Dose: 100 mls/hr Midazolam HCl (Versed 1 Mg/Ml) Confirm Administered Dose 2 mg .ROUTE .STK-MED ONE Stop: 02/05/18 08:41 Naloxone HCl (Narcan) 0.1 mg IV ASDIRECTED PRN PRN Reason: decreased respiratory rate Neostigmine Methylsulfate (Neostigmine) Confirm Administered Dose 5 mg .ROUTE .STK-MED ONE Stop: 02/05/18 08:53 Ondansetron HCl (Zofran) Confirm Administered Dose 4 mg .ROUTE .STK-MED ONE Stop: 02/05/18 08:53 Propofol (Diprivan 20 Ml) Confirm Administered Dose 200 mg .ROUTE .STK-MED ONE Stop: 02/05/18 08:53 Quetiapine Fumarate (Seroquel) Confirm Administered Dose 700 mg .ROUTE .STK-MED ONE Stop: 02/08/18 21:45 Last Admin: 02/08/18 21:53 Dose: Not Given Rocuronium [place] (Zemuron) Confirm Administered Dose 50 mg .ROUTE .STK-MED ONE Stop: 02/05/18 08:53 - Exam Quality Assessment: Reports: DVT Prophylaxis (SCDs while resting) General: Reports: Alert, Oriented, Cooperative, No Acute Distress HEENT: Reports: Pupils Equal, Pupils Reactive, Other (anterior tongue with white plaques improving ) Neck: Reports: Supple, Trachea Midline Lungs: Reports: Clear to Auscultation, Normal Respiratory Effort Cardiovascular: Reports: Regular Rate, Regular Rhythm GI/Abdominal Exam: Normal Bowel Sounds, Soft, Tender (to incision sites) (Female) Exam: Deferred Rectal (Female) Exam: Deferred Back Exam: Reports: Normal Inspection, Full Range of Motion Extremities: Normal Inspection, No Pedal Edema Skin: Reports: Warm, Dry, Intact Wound/Incisions: Reports: Healing Well Neurological: Reports: No New Focal Deficit Psy/Mental Status: Reports: Alert, Normal Affect, Normal Mood Discharge Operative/Procedures - Procedures Performed Operations: laparoscopic gastrostomy tube placement on 02/06/2018
--- NOTE | 2018-02-12 09:14 | OR ---
DATE OF PROCEDURE: 02/05/2018 PREOPERATIVE DIAGNOSIS: Malnutrition secondary to inadequate oral intake. POSTOPERATIVE DIAGNOSIS: Malnutrition secondary to inadequate oral intake. PROCEDURE: Laparoscopic placement of tube gastrostomy (66303). ANESTHESIA: General. ASSISTANTS: Jaida Thomas PA-C, DIANNA Sampson, and DIANNA Manzano INDICATION FOR PROCEDURE: The patient is status post redo Surinder fundoplication. Since that time, she has, for a variety of reasons, been unable to maintain satisfactory oral intake. At this point, it was fairly evident that the patient needs nutritional support, and gastrostomy tube is to be placed. Potential risks of the procedure were reviewed with the patient, along with her caregivers, and they wished to proceed. DETAILS OF PROCEDURE: The patient was taken to the operating room and placed in supine position. After general endotracheal anesthesia was induced, she was converted to a lithotomy position and the abdomen prepped and draped. In the left lower quadrant, a transverse incision was made and peritoneal cavity entered under direct vision with an Optiview trocar inflated to 15 mmHg pressure with CO2. Laparoscope was then reinserted. No underlying trocar insertion site injuries were seen. Following this, 5 mm trocars were placed in the right and left mid abdomen, and bilateral transversus abdominis plane blocks were placed, using direct vision of the needle in the transversus abdominis plane and injection of standard solution. At this point, the stomach along its mid body was easily identified. This was pulled up to the abdominal wall, and an area along the mid left subcostal border was selected. Additional 5-mm trocar was placed at that level, and an 18-Malaysian Alyton catheter was placed then through that opening, after removal of the trocar with the Cathtek. A small gastrotomy along the edge of the greater curvature in the midbody of the stomach was then made with Harmonic scalpel, and a pursestring stitch of 3-0 Vicryl stitch was placed surrounding the opening. Through this, the gastrostomy tube was placed and inflated with 10 mL with saline. The pursestring sutures were pulled up and tied, and the same suture was then used to initially tack the gastrostomy tube up through the abdominal wall. Once this suture was placed, it was pulled up against the abdominal wall, and this suture was secured with a Ti- KNOT device. Two additional sutures, both of which incorporated some omentum with them, were then placed, one in the left upper aspect of the gastrostomy site and one in the right upper area of the gastrostomy, thus securing the tube circumferentially. At that point, no further problems were noted. Trocars were removed. The peritoneal cavity deflated. The original trocar site used for the camera port was a 12 mm port, which was closed at the fascia level with 0 Vicryl stitch, and the skin closed with 4-0 Vicryl skin stitch. The patient was taken to the recovery room in satisfactory condition. There were no evident complications. Physician manufacturing assistant, Jaida Thomas, played an essential role in assisting in this case, helping to position the patient and retract structures as needed, as well as suturing and cutting sutures when indicated. Her presence improved patient safety and decreased the operative time. Kenneth White MD /[id number]
== END 2018-02-09 15:40 | DRG 641 ==
LOC: JP.SDS 06:46 → JP.SDSSCHI 06:46 → JP.2SS 10:15 → EDSTATUS 10:30
PROVIDERS: ADMIT Surgery; ATTEND Surgery
PROC: 0DH64UZ Insertion of Feeding Device into Stomach, Percutaneous Endoscopic Approach (ICD-10-PCS; principal; 2018-02-05)
DX: E43 Unspecified severe protein-calorie malnutrition (principal); Z68.1 Body mass index [BMI] 19.9 or less, adult; K91.2 Postsurgical malabsorption, not elsewhere classified; B37.0 Candidal stomatitis; F31.89 Other bipolar disorder; E55.9 Vitamin D deficiency, unspecified; E53.8 Deficiency of other specified B group vitamins; Z90.3 Acquired absence of stomach [part of]; E03.9 Hypothyroidism, unspecified
CPT/HCPCS: 36415; 80053; 82607; 82728; 82746; 83735; 84100; 85027; 94762; A9270-GY; J0171; J0690; J0694; J1100; J1170; J2250; J2405; J2704; J2710; J2795; J3010; J7042; J7050

== ENCOUNTER 2018-04-06 14:44 | Inpatient (IN) | payer MEDICARE, MEDICAID ==
[2018-04-06] MEDS ORDERED: Iopamidol 612 MG/ML 100 ML Bottle IV SCH (17:00)
[2018-04-06] MEDS ORDERED: Sodium Chloride 0.9% 80 ML IV SCH (17:00)
[2018-04-06] MEDS: Sodium Chloride 0.9% 10 ML Syringe FLUSH PRN ×2 (17:05→17:09)
--- NOTE | 2018-04-06 17:12 | EDM.PDOC ---
ED HPI GENERAL MEDICAL PROBLEM - General Chief Complaint: Gastrointestinal Problem Stated Complaint: FEEDING TUBE ISSUES/POSSIBLE BOWEL OBSTRUCTION Time Seen by Provider: 04/06/18 15:10 Source of Information: Reports: Patient History Limitations: Reports: No Limitations - History of Present Illness INITIAL COMMENTS - FREE TEXT/NARRATIVE: pt arrived because he has yellow fluid backing up in the feeding tube. He had seen Dr White this am and she changed the tube and it is still backing up. Onset: Other ( started last pm) Duration: Hour(s): Location: Reports: Other ( persistent backing up of the feeding tube. ) Quality: Reports: Pressure Associated Symptoms: Reports: No Other Symptoms - Related Data Allergies Allergy/AdvReac Type Severity Reaction Status Date / Time calcipotriene Allergy Other Verified 04/06/18 15:02 pollen extracts Allergy Other Verified 04/06/18 15:02 Home Meds: Home Meds Cetirizine HCl [Zyrtec] 10 mg PO DAILY 01/14/14 [History] Levothyroxine [Synthroid] 50 mcg PO ACBRK 01/14/14 [History] lamoTRIgine [Lamictal] 50 mg PO BID 01/14/14 [History] Clotrimazole [Mycelex] 10 mg PO .TIDQOD 09/05/16 [History] Clobetasol [Temovate 0.05% Oint] 15 gm TOP BID 09/27/16 [History] Donepezil [Aricept] 5 mg PO BEDTIME 09/27/16 [History] LORazepam [Ativan] 1 mg PO DAILY 09/27/16 [History] Multivitamin W/Iron, Minerals [Flintstones Complete] 1 each PO BID #100 tab.chew 10/03/16 [Rx] Ondansetron [Zofran] 4 mg PO Q4HR PRN 07/21/17 [History] Polyethylene Glycol 3350 [MiraLAX] 17 gm PO DAILY PRN 07/21/17 [History] Cyanocobalamin (Vitamin B-12) [B-12] 2,500 mcg PO DAILY 02/01/18 [History] Dicyclomine [Bentyl] 10 mg PO Q4H PRN 02/01/18 [History] Docusate Sodium [DOK] 200 mg PO BID 02/01/18 [History] QUEtiapine Fumarate [Seroquel Xr] 400 mg PO BEDTIME 02/01/18 [History] QUEtiapine [SEROquel] 300 mg PO BEDTIME 02/01/18 [History] Thiamine [Vitamin B-1] 100 mg PO DAILY 02/01/18 [History] Calcium Phosphate Trib/Vit D3 [Citracal + D3 Gummies] 1 tab PO BID 02/05/18 [ History] Ferrous Fumarate/Vitamin C [Vitron-C] 1 tab PO BID 02/05/18 [History] Timolol [Betimol 0.5% Ophth Soln] 1 drop EYEBOTH BEDTIME 02/05/18 [History] Acetaminophen [Tylenol] 650 mg PO Q4H PRN tablet 02/09/18 [Rx] Megestrol [Megace 40 MG/ML Susp] 10 ml PO BID #0 02/09/18 [Rx] Past Medical History HEENT History: Reports: Hard of Hearing, Impaired Vision Other HEENT History: wears glasses/hearing aides Cardiovascular History: Reports: High Cholesterol Gastrointestinal History: Reports: Chronic Constipation, GERD Musculoskeletal History: Reports: Back Pain, Chronic Psychiatric History: Reports: Bipolar, Dementia Endocrine/Metabolic History: Reports: Hypothyroidism Oncologic (Cancer) History: Reports: Breast Dermatologic History: Reports: Psoriasis - Infectious Disease History Infectious Disease History: Reports: Chicken Pox Other Infectious Disease History: unsure - Past Surgical History Head Surgeries/Procedures: Reports: None HEENT Surgical History: Reports: Cataract Surgery, Oral Surgery Cardiovascular Surgical History: Reports: None GI Surgical History: Reports: Colonoscopy, EGD, Surinder Fundoplication Endocrine Surgical History: Reports: None Musculoskeletal Surgical History: Reports: None Oncologic Surgical History: Reports: Mastectomy Other Oncologic Surgeries/Procedures: mastectomy on left side Dermatological Surgical History: Reports: None Social & Family History - Family History Family Medical History: Unobtainable Oncologic: Reports: Other (See Below) Other Oncologic Family History: stomach - Tobacco Use Smoking Status *Q: Never Smoker - Caffeine Use Caffeine Use: Reports: Coffee, Tea - Recreational Drug Use Recreational Drug Use: No ED ROS GENERAL - Review of Systems Review Of Systems: See Below Constitutional: Reports: No Symptoms HEENT: Reports: No Symptoms Respiratory: Reports: No Symptoms Cardiovascular: Reports: No Symptoms Endocrine: Reports: No Symptoms GI/Abdominal: Reports: Other ( Pt has a feeding tube that is backing up. ) : Reports: No Symptoms Musculoskeletal: Reports: No Symptoms Skin: Reports: No Symptoms Neurological: Reports: No Symptoms Psychiatric: Reports: Anxiety Hematologic/Lymphatic: Reports: No Symptoms Immunologic: Reports: No Symptoms ED EXAM, GI/ABD - Physical Exam Exam: See Below Text/Narrative:: pt arrived with difficulty with the feeding tube. Dr White placed a tube this am and it is still backing up. Exam Limited By: No Limitations General Appearance: Alert, Anxious, Mild Distress Ears: Normal TMs Nose: Normal Inspection Throat/Mouth: Normal Inspection Head: Atraumatic Neck: Normal Inspection Respiratory/Chest: No Respiratory Distress Cardiovascular: Regular Rate, Rhythm GI/Abdominal Exam: Soft, Non-Tender, Tender, Other (not markedly distended. ) (Female) Exam: Deferred Rectal (Female) Exam: Deferred Back Exam: Normal Inspection Extremities: Normal Inspection Neurological: Alert, Oriented, Normal Cognition Psychiatric: Anxious Course - Vital Signs Last Recorded V/S: Last Vital Signs Temp 37.1 C 04/06/18 15:08 Pulse 83 04/06/18 15:08 Resp 20 04/06/18 15:08 BP 124/73 04/06/18 15:08 Pulse Ox 96 04/06/18 15:08 - Orders/Labs/Meds Orders: Active Orders 24 hr Category Date Time Status Abdomen Pelvis w Cont [CT] Stat Exams 04/06/18 16:39 Taken Abdomen Series w Chest 1V [CR] Urgent Exams 04/06/18 16:29 Taken UA W/MICROSCOPIC [URIN] Urgent Lab 04/06/18 16:44 Ordered Iopamidol [Isovue-300 (61%)] Med 04/06/18 17:00 Active 100 ml IV . DIRECTED Sodium Chloride 0.9% [Normal Saline] 80 ml Med 04/06/18 17:00 Active IV ASDIRECTED Sodium Chloride 0.9% [Saline Flush] Med 04/06/18 16:46 Active 10 ml FLUSH ASDIRECTED PRN Medication Orders Sodium Chloride (Normal Saline) 80 mls @ 3 mls/sec IV ASDIRECTED TSERING Last Admin: 04/06/18 17:09 Dose: 3 mls/sec Iopamidol (Isovue-300 (61%)) 100 ml IV . DIRECTED TSERING Last Admin: 04/06/18 17:09 Dose: 80 ml Sodium Chloride (Saline Flush) 10 ml FLUSH ASDIRECTED PRN PRN Reason: Keep Vein Open Last Admin: 04/06/18 17:09 Dose: 10 ml Admin: 04/06/18 17:05 Dose: 10 ml Labs: Laboratory Tests 04/06/18 04/06/18 04/06/18 Range/Units 15:58 15:58 16:30 WBC 7.1 (4.5-11.0) K/uL RBC 3.32 (3.30-5.50) M/uL Hgb 11.5 L (12.0-15.0) g/dL Hct 34.9 L (36.0-48.0) % MCV 105 H (80-98) fL MCH 35 H (27-31) pg MCHC 33 (32-36) % Plt Count 393 (150-400) K/uL Neut % (Auto) 54 (36-66) % Lymph % (Auto) 35 (24-44) % Schley % (Auto) 10 H (2-6) % Eos % (Auto) 1 L (2-4) % Baso % (Auto) 0 (0-1) % Sodium 139 L (140-148) mmol/L Potassium 3.8 (3.6-5.2) mmol/L Chloride 103 (100-108) mmol/L Carbon Dioxide 27 (21-32) mmol/L Anion Gap 12.8 (5.0-14.0) mmol/L BUN 21 H D (7-18) mg/dL Creatinine 0.8 (0.6-1.0) mg/dL Est Cr Clr Drug Dosing 64.58 mL/min Estimated GFR (MDRD) > 60 (>60) Glucose 88 (74-106) mg/dL Calcium 8.9 (8.5-10.1) mg/dL Total Bilirubin 0.3 (0.2-1.0) mg/dL AST 26 (15-37) U/L ALT 62 D (12-78) U/L Alkaline Phosphatase 103 (46-116) U/L C-Reactive Protein 0.07 (0.0-0.3) mg/dL NT-Pro-B Natriuret Pep 87 (5-125) pg/mL Total Protein 7.0 (6.4-8.2) g/dL Albumin 3.4 (3.4-5.0) g/dL Globulin 3.6 H (2.3-3.5) g/dL Albumin/Globulin Ratio 0.9 L (1.2-2.2) Urine Color Urine Appearance Urine pH (4.5-8.0) Ur Specific Mellott (1.008-1.030) Urine Protein (NEGATIVE) mg/dL Urine Glucose (UA) (NEGATIVE) mg/dL Urine Ketones (NEGATIVE) mg/dL Urine Occult Blood (NEGATIVE) Urine Nitrite (NEGATIVE) Urine Bilirubin (NEGATIVE) Urine Urobilinogen (NORMAL) mg/dL Ur Leukocyte Esterase (NEGATIVE) Urine RBC (0-5) Urine WBC (0-5) Ur Epithelial Cells Amorphous Sediment Urine Bacteria Urine Mucus 04/06/18 Range/Units 16:44 WBC (4.5-11.0) K/uL RBC (3.30-5.50) M/uL Hgb (12.0-15.0) g/dL Hct (36.0-48.0) % MCV (80-98) fL MCH (27-31) pg MCHC (32-36) % Plt Count (150-400) K/uL Neut % (Auto) (36-66) % Lymph % (Auto) (24-44) % Schley % (Auto) (2-6) % Eos % (Auto) (2-4) % Baso % (Auto) (0-1) % Sodium (140-148) mmol/L Potassium (3.6-5.2) mmol/L Chloride (100-108) mmol/L Carbon Dioxide (21-32) mmol/L Anion Gap (5.0-14.0) mmol/L BUN (7-18) mg/dL Creatinine (0.6-1.0) mg/dL Est Cr Clr Drug Dosing mL/min Estimated GFR (MDRD) (>60) Glucose (74-106) mg/dL Calcium (8.5-10.1) mg/dL Total Bilirubin (0.2-1.0) mg/dL AST (15-37) U/L ALT (12-78) U/L Alkaline Phosphatase (46-116) U/L C-Reactive Protein (0.0-0.3) mg/dL NT-Pro-B Natriuret Pep (5-125) pg/mL Total Protein (6.4-8.2) g/dL Albumin (3.4-5.0) g/dL Globulin (2.3-3.5) g/dL Albumin/Globulin Ratio (1.2-2.2) Urine Color Yellow Urine Appearance Slightly cloudy Urine pH 6.0 (4.5-8.0) Ur Specific Mellott 1.020 (1.008-1.030) Urine Protein Negative (NEGATIVE) mg/dL Urine Glucose (UA) Normal (NEGATIVE) mg/dL Urine Ketones Negative (NEGATIVE) mg/dL Urine Occult Blood Negative (NEGATIVE) Urine Nitrite Negative (NEGATIVE) Urine Bilirubin Negative (NEGATIVE) Urine Urobilinogen Normal (NORMAL) mg/dL Ur Leukocyte Esterase Negative (NEGATIVE) Urine RBC 0-5 (0-5) Urine WBC 0-5 (0-5) Ur Epithelial Cells Few Amorphous Sediment Many Urine Bacteria Few Urine Mucus Not seen Meds: Medications Generic Name Dose Route Start Last Admin Trade Name Freq PRN Reason Stop Dose Admin Sodium Chloride 80 mls @ 3 mls/sec 04/06/18 17:00 04/06/18 17:09 Normal Saline IV 3 mls/sec ASDIRECTED TSERING Administration Iopamidol 100 ml 04/06/18 17:00 04/06/18 17:09 Isovue-300 (61%) IV 80 ml . DIRECTED TSERING Administration Sodium Chloride 10 ml 04/06/18 16:46 04/06/18 17:09 Saline Flush FLUSH 10 ml ASDIRECTED PRN Administration Keep Vein Open - Re-Assessments/Exams Free Text/Narrative Re-Assessment/Exam: 04/06/18 18:12 wbc is normal, chems are normal, cat scan shos a midgut volvulus and the sigmoid colon is caught up in the volvulus Departure - Departure Time of Disposition: 18:14 Disposition: Admitted As Inpatient 68 Condition: Fair Clinical Impression: Volvulus of midgut - Discharge Information Referrals: Libra Gao MD [Primary Care Provider] - Forms: ED Department Discharge Care Plan Goals: admit to Dr suazo, plan for surgery at [address] White, - My Orders Last 24 Hours: My Active Orders 04/06/18 16:29 Abdomen Series w Chest 1V [CR] Urgent 04/06/18 16:39 Abdomen Pelvis w Cont [CT] Stat 04/06/18 16:44 UA W/MICROSCOPIC [URIN] Urgent 04/06/18 16:46 Sodium Chloride 0.9% [Saline Flush] 10 ml FLUSH ASDIRECTED PRN 04/06/18 17:00 Iopamidol [Isovue-300 (61%)] 100 ml IV . DIRECTED Sodium Chloride 0.9% [Normal Saline] 80 ml IV ASDIRECTED - Assessment/Plan Last 24 Hours: My Active Orders 04/06/18 16:29 Abdomen Series w Chest 1V [CR] Urgent 04/06/18 16:39 Abdomen Pelvis w Cont [CT] Stat 04/06/18 16:44 UA W/MICROSCOPIC [URIN] Urgent 04/06/18 16:46 Sodium Chloride 0.9% [Saline Flush] 10 ml FLUSH ASDIRECTED PRN 04/06/18 17:00 Iopamidol [Isovue-300 (61%)] 100 ml IV . DIRECTED Sodium Chloride 0.9% [Normal Saline] 80 ml IV ASDIRECTED
--- NOTE | 2018-04-06 18:36 | PCM.HP ---
H&P History of Present Illness - General Date of Service: 04/06/18 Admit Problem/Dx: Admission Diagnosis/Problem Admission Diagnosis/Problem Volvulus of small intestine Source of Information: Patient, Provider History Limitations: Reports: No Limitations - History of Present Illness Initial Comments - Free Text/Narative: Kirstie presented to the ED today because of a malfunctioning feeding tube. She first noticed trouble with her tube feedings last night when the fluid came right back out after administration was attempted. She was seen in the clinic today and her old feeding tube was replaced. Initially this seemed to be working but as the day went on back up from the tube was noted again. She does note intermittent episodes of abdominal pain over the last few weeks but especially the last couple of days. She describes aching pain that starts in the left lower quadrant and then radiates throughout the left side of her abdomen. Pain can be anywhere from mild to moderately severe. In comes and goes in waves and she hasn't taken anything to make it better. No obvious trigger to make the pain worse. She has noticed increased heartburn in the past few days as well as dry heaves but no vomiting. Bowel movements have been difficult to achieve and she has not had a good bowel movement in a couple of days. She has episodes of hot flashes but these are not new and have been going on for some time. No chills and no fevers. No change in bladder habits. She has noticed a warm feeling across the upper part of her abdomen, especially when the pain is present. No complaints of shortness of breath. No previous difficulties with surgery or anesthesia. Workup in the emergency room revealed fairly normal labs but a CT scan suggested a small bowel volvulus. The patient will be admitted for hydration, pain control and likely surgical intervention in the morning. - Related Data Allergies/Adverse Reactions: Allergies Allergy/AdvReac Type Severity Reaction Status Date / Time calcipotriene Allergy Other Verified 04/06/18 15:02 pollen extracts Allergy Other Verified 04/06/18 15:02 Home Medications: Home Meds Cetirizine HCl [Zyrtec] 10 mg PO DAILY 01/14/14 [History] Levothyroxine [Synthroid] 50 mcg PO ACBRK 01/14/14 [History] lamoTRIgine [Lamictal] 50 mg PO BID 01/14/14 [History] Clotrimazole [Mycelex] 10 mg PO .TIDQOD 09/05/16 [History] Clobetasol [Temovate 0.05% Oint] 15 gm TOP BID 09/27/16 [History] Donepezil [Aricept] 5 mg PO BEDTIME 09/27/16 [History] LORazepam [Ativan] 1 mg PO DAILY 09/27/16 [History] Multivitamin W/Iron, Minerals [Flintstones Complete] 1 each PO BID #100 tab.chew 10/03/16 [Rx] Ondansetron [Zofran] 4 mg PO Q4HR PRN 07/21/17 [History] Polyethylene Glycol 3350 [MiraLAX] 17 gm PO DAILY PRN 07/21/17 [History] Cyanocobalamin (Vitamin B-12) [B-12] 2,500 mcg PO DAILY 02/01/18 [History] Dicyclomine [Bentyl] 10 mg PO Q4H PRN 02/01/18 [History] Docusate Sodium [DOK] 200 mg PO BID 02/01/18 [History] QUEtiapine Fumarate [Seroquel Xr] 400 mg PO BEDTIME 02/01/18 [History] QUEtiapine [SEROquel] 300 mg PO BEDTIME 02/01/18 [History] Thiamine [Vitamin B-1] 100 mg PO DAILY 02/01/18 [History] Calcium Phosphate Trib/Vit D3 [Citracal + D3 Gummies] 1 tab PO BID 02/05/18 [ History] Ferrous Fumarate/Vitamin C [Vitron-C] 1 tab PO BID 02/05/18 [History] Timolol [Betimol 0.5% Ophth Soln] 1 drop EYEBOTH BEDTIME 02/05/18 [History] Acetaminophen [Tylenol] 650 mg PO Q4H PRN tablet 02/09/18 [Rx] Megestrol [Megace 40 MG/ML Susp] 10 ml PO BID #0 02/09/18 [Rx] Past Medical History HEENT History: Reports: Hard of Hearing, Impaired Vision Other HEENT History: wears glasses/hearing aides Cardiovascular History: Reports: High Cholesterol Gastrointestinal History: Reports: Chronic Constipation, GERD Musculoskeletal History: Reports: Back Pain, Chronic Psychiatric History: Reports: Bipolar, Dementia Endocrine/Metabolic History: Reports: Hypothyroidism Oncologic (Cancer) History: Reports: Breast Dermatologic History: Reports: Psoriasis - Infectious Disease History Infectious Disease History: Reports: Chicken Pox Other Infectious Disease History: unsure - Past Surgical History Head Surgeries/Procedures: Reports: None HEENT Surgical History: Reports: Cataract Surgery, Oral Surgery Cardiovascular Surgical History: Reports: None GI Surgical History: Reports: Colonoscopy, EGD, Surinder Fundoplication Endocrine Surgical History: Reports: None Musculoskeletal Surgical History: Reports: None Oncologic Surgical History: Reports: Mastectomy Other Oncologic Surgeries/Procedures: mastectomy on left side Dermatological Surgical History: Reports: None Social & Family History - Family History Family Medical History: Unobtainable Oncologic: Reports: Other (See Below) Other Oncologic Family History: stomach - Tobacco Use Smoking Status *Q: Never Smoker - Caffeine Use Caffeine Use: Reports: Coffee, Tea - Alcohol Use Alcohol Use History: No - Recreational Drug Use Recreational Drug Use: No H&P Review of Systems - Review of Systems: Review Of Systems: See Below Free Text/Narrative: A complete 12 point review of systems was obtained. Pertinent positives and negatives are noted in the history of present illness. All other systems were reviewed and were negative except as noted. Exam - Exam Exam: See Below - Vital Signs Vital Signs: Last Vital Signs Temp 37.1 C 04/06/18 15:08 Pulse 83 04/06/18 15:08 Resp 20 04/06/18 15:08 BP 124/73 04/06/18 15:08 Pulse Ox 96 04/06/18 15:08 Weight: 115.2 kg - Exam Quality Assessment: No: Supplemental Oxygen General: Alert, Oriented, Cooperative. No: Mild Distress HEENT: Conjunctiva Clear. No: Mucosa Moist & [place] (dry), Scleral Icterus Neck: Supple, Trachea Midline Lungs: Clear to Auscultation, Normal Respiratory Effort Cardiovascular: Regular Rate, Regular Rhythm GI/Abdominal Exam: Soft, Distended (Mild), Tender (Moderate epigastric, right upper quadrant and right lower quadrant), Abnormal Bowel Sounds (Hypoactive on the right) Back Exam: Normal Inspection, Full Range of Motion Extremities: No Pedal Edema. No: Increased Warmth Peripheral Pulses: 2+: Dorsalis Pedis (L), Dorsalis Pedis (R) Skin: Warm, Dry Neuro Extensive - Mental Status: Alert, Oriented x3, Nl Response to Commands Neuro Extensive - Motor, Sensory, Reflexes: CN II-XII Intact. No: Dysarthria, Abnormal Motor, Tremor Psychiatric: Alert, Normal Affect - Patient Data Lab Results Last 24 hrs: Laboratory Results - last 24 hr 04/06/18 04/06/18 04/06/18 Range/Units 15:58 15:58 16:30 WBC 7.1 (4.5-11.0) K/uL RBC 3.32 (3.30-5.50) M/uL Hgb 11.5 L (12.0-15.0) g/dL Hct 34.9 L (36.0-48.0) % MCV 105 H (80-98) fL MCH 35 H (27-31) pg MCHC 33 (32-36) % Plt Count 393 (150-400) K/uL Neut % (Auto) 54 (36-66) % Lymph % (Auto) 35 (24-44) % [place] % (Auto) 10 H (2-6) % Eos % (Auto) 1 L (2-4) % Baso % (Auto) 0 (0-1) % Sodium 139 L (140-148) mmol/L Potassium 3.8 (3.6-5.2) mmol/L Chloride 103 (100-108) mmol/L Carbon Dioxide 27 (21-32) mmol/L Anion Gap 12.8 (5.0-14.0) mmol/L BUN 21 H D (7-18) mg/dL Creatinine 0.8 (0.6-1.0) mg/dL Est Cr Clr Drug Dosing 64.58 mL/min Estimated GFR (MDRD) > 60 (>60) Glucose 88 (74-106) mg/dL Calcium 8.9 (8.5-10.1) mg/dL Total Bilirubin 0.3 (0.2-1.0) mg/dL AST 26 (15-37) U/L ALT 62 D (12-78) U/L Alkaline Phosphatase 103 (46-116) U/L C-Reactive Protein 0.07 (0.0-0.3) mg/dL NT-Pro-B Natriuret Pep 87 (5-125) pg/mL Total Protein 7.0 (6.4-8.2) g/dL Albumin 3.4 (3.4-5.0) g/dL Globulin 3.6 H (2.3-3.5) g/dL Albumin/Globulin Ratio 0.9 L (1.2-2.2) Urine Color Urine Appearance Urine pH (4.5-8.0) Ur Specific [place] (1.008-1.030) Urine Protein (NEGATIVE) mg/dL Urine Glucose (UA) (NEGATIVE) mg/dL Urine Ketones (NEGATIVE) mg/dL Urine Occult Blood (NEGATIVE) Urine Nitrite (NEGATIVE) Urine Bilirubin (NEGATIVE) Urine Urobilinogen (NORMAL) mg/dL Ur Leukocyte Esterase (NEGATIVE) Urine RBC (0-5) Urine WBC (0-5) Ur Epithelial Cells Amorphous Sediment Urine Bacteria Urine Mucus 04/06/18 Range/Units 16:44 WBC (4.5-11.0) K/uL RBC (3.30-5.50) M/uL Hgb (12.0-15.0) g/dL Hct (36.0-48.0) % MCV (80-98) fL MCH (27-31) pg MCHC (32-36) % Plt Count (150-400) K/uL Neut % (Auto) (36-66) % Lymph % (Auto) (24-44) % [place] % (Auto) (2-6) % Eos % (Auto) (2-4) % Baso % (Auto) (0-1) % Sodium (140-148) mmol/L Potassium (3.6-5.2) mmol/L Chloride (100-108) mmol/L Carbon Dioxide (21-32) mmol/L Anion Gap (5.0-14.0) mmol/L BUN (7-18) mg/dL Creatinine (0.6-1.0) mg/dL Est Cr Clr Drug Dosing mL/min Estimated GFR (MDRD) (>60) Glucose (74-106) mg/dL Calcium (8.5-10.1) mg/dL Total Bilirubin (0.2-1.0) mg/dL AST (15-37) U/L ALT (12-78) U/L Alkaline Phosphatase (46-116) U/L C-Reactive Protein (0.0-0.3) mg/dL NT-Pro-B Natriuret Pep (5-125) pg/mL Total Protein (6.4-8.2) g/dL Albumin (3.4-5.0) g/dL Globulin (2.3-3.5) g/dL Albumin/Globulin Ratio (1.2-2.2) Urine Color Yellow Urine Appearance Slightly cloudy Urine pH 6.0 (4.5-8.0) Ur Specific [place] 1.020 (1.008-1.030) Urine Protein Negative (NEGATIVE) mg/dL Urine Glucose (UA) Normal (NEGATIVE) mg/dL Urine Ketones Negative (NEGATIVE) mg/dL Urine Occult Blood Negative (NEGATIVE) Urine Nitrite Negative (NEGATIVE) Urine Bilirubin Negative (NEGATIVE) Urine Urobilinogen Normal (NORMAL) mg/dL Ur Leukocyte Esterase Negative (NEGATIVE) Urine RBC 0-5 (0-5) Urine WBC 0-5 (0-5) Ur Epithelial Cells Few Amorphous Sediment Many Urine Bacteria Few Urine Mucus Not seen Result Diagrams: 04/06/18 15:58 04/06/18 15:58 Imaging Impressions Last 24 hrs: CT scan of the abdomen and pelvis - images personally reviewed - there is swirling of the mesentery concerning for a small bowel volvulus. Significant gaseous distention of the colon is noted. Concern for small bowel obstruction secondary to small bowel volvulus. *Q Meaningful Use (ADM) - VTE *Q VTE Pharmacological Contraindications *Q: Patient Scheduled Surgery - VTE Risk Assess *Q Each Risk Factor Represents 1 Point: None Total Score 1 Point Risk Factors: 0 Each Risk Factor Represents 2 Points: Age 60 - 74 Years, Major surgery greater than 45 minutes Total Score 2 Point Risk Factors: 4 Each Risk Factor Represents 3 Points: None Total Score 3 Point Risk Factors: 0 Each Risk Factor Represents 5 Points: None Total Score 5 Point Risk Factors: 0 Venous Thromboembolism Risk Factor Score *Q: 4 - Problem List (1) Volvulus of small intestine SNOMED Code(s): 706624354 ICD Code: K56.2 - VOLVULUS Status: Acute Current Visit: Yes (2) Postoperative malabsorption SNOMED Code(s): 084792433 ICD Code: K91.2 - POSTSURGICAL MALABSORPTION, NOT ELSEWHERE CLASSIFIED Status: Chronic Current Visit: No (3) Bipolar 1 disorder SNOMED Code(s): 879625750 ICD Code: F31.9 - BIPOLAR DISORDER, UNSPECIFIED Status: Chronic Current Visit: No Problem List Initiated/Reviewed/Updated: Yes Orders Last 24hrs: Active Orders 24 hr Category Date Time Status Patient Status Manage Transfer [TRANSFER] Routine ADT 04/06/18 18:29 Ordered Abdomen Pelvis w Cont [CT] Stat Exams 04/06/18 16:39 Taken Abdomen Series w Chest 1V [CR] Urgent Exams 04/06/18 16:29 Taken UA W/MICROSCOPIC [URIN] Urgent Lab 04/06/18 16:44 Ordered Iopamidol [Isovue-300 (61%)] Med 04/06/18 17:00 Active 100 ml IV . DIRECTED Sodium Chloride 0.9% [Normal Saline] 80 ml Med 04/06/18 17:00 Active IV ASDIRECTED Sodium Chloride 0.9% [Saline Flush] Med 04/06/18 16:46 Active 10 ml FLUSH ASDIRECTED PRN Resuscitation Status Routine Resus Stat 04/06/18 18:31 Ordered Medication Orders Sodium Chloride (Normal Saline) 80 mls @ 3 mls/sec IV ASDIRECTED TSERING Last Admin: 04/06/18 17:09 Dose: 3 mls/sec Iopamidol (Isovue-300 (61%)) 100 ml IV . DIRECTED [facility] Last Admin: 04/06/18 17:09 Dose: 80 ml Sodium Chloride (Saline Flush) 10 ml FLUSH ASDIRECTED PRN PRN Reason: Keep Vein Open Last Admin: 04/06/18 17:09 Dose: 10 ml Admin: 04/06/18 17:05 Dose: 10 ml Assessment/Plan Comment:: ASSESSMENT AND PLAN - Small bowel volvulus - likely cause for abdominal pain with nausea as well as the feeding tube malfunction. Surgical intervention is planned for tomorrow. Patient seems to be medically optimized for the proposed procedure. She will receive hydration and symptomatic management overnight. -IV fluids -Pain control -Nausea medication -Consult Dr. White, surgical intervention planned for the morning History of postoperative malabsorption - feeding tube is in place but is currently not functioning well. -Hold tube feedings for now, resume as able after surgery Bipolar disorder - stable at this time. -Continue home medications Maintenance issues - - DVT prophylaxis - mechanical - GI prophylaxis - PPI - Nutrition - nothing by mouth - Layton catheter - not indicated CODE STATUS - full code Admission justification - This patient will be admitted for inpatient services and is medically appropriate meeting medical necessity for inpatient admission as outlined in my documentation. I reasonably expect the patient will require inpatient services that span a period time over 2 midnights. I reasonably expect this patient to be discharged or transferred within 96 hours after admission to the [facility]. Disposition - I would anticipate discharge to snf after the hospital stay Primary care physician - Dr Sima Wilcox M.D.
[2018-04-06] MEDS ORDERED: Polyethylene Glycol 3350 Powder 17 GM Packet PO PRN (19:43)
[2018-04-06] MEDS ORDERED: Albuterol 0.083% 2.5 MG/3 ML Neb Soln NEB PRN (19:43)
[2018-04-06] MEDS ORDERED: Ondansetron 4 MG Tab.DIS PO PRN (19:43)
[2018-04-06] MEDS ORDERED: Acetaminophen 325 MG Tab PO PRN (19:43)
[2018-04-06] MEDS ORDERED: HYDROmorphone 0.5 MG/0.5 ML Syringe IVPUSH PRN (19:43)
[2018-04-06] MEDS ORDERED: LORazepam 2 MG/ML SDV IVPUSH PRN (19:43)
[2018-04-06] MEDS ORDERED: Ondansetron 4 MG/2 ML SDV IV PRN (19:43)
[2018-04-06] MEDS ORDERED: QUEtiapine 50 MG Tab.SR PO SCH (21:00)
[2018-04-06] MEDS ORDERED: Timolol Maleate 0.5% Ophth Soln 5 ML Bottle EYEBOTH SCH (21:00)
[2018-04-06] MEDS: Donepezil 10 MG Tab PO SCH (21:45)
[2018-04-06] MEDS: Lactated Ringers 1,000 ML IV SCH (21:45)
[2018-04-06] MEDS: Pantoprazole 40 MG Vial IVPUSH SCH (21:45)
[2018-04-06] MEDS ORDERED: QUEtiapine 100 MG Tab ONE (22:10)
[2018-04-06] MEDS ORDERED: lamoTRIgine 100 MG Tab ONE (22:10)
[2018-04-06] MEDS: lamoTRIgine 25 MG Tab PO SCH (22:22)
[2018-04-07] MEDS: Lactated Ringers 1,000 ML IV SCH (05:28)
[2018-04-07] MEDS ORDERED: Naloxone 0.4 MG/ML SDV IV PRN (07:22)
[2018-04-07] MEDS: HYDROmorphone/Normal Saline 15 MG/30 ML PCA IV PRN (07:44)
[2018-04-07] MEDS ORDERED: Meropenem 500 MG SDV ONE (07:55)
[2018-04-07] MEDS ORDERED: cefOXitin 2 GM in Sodium Chloride 0.9% 50 ML IV ONE (08:00)
[2018-04-07] MEDS ORDERED: Propofol 200 MG/20 ML SDV ONE (08:00)
[2018-04-07] MEDS ORDERED: Rocuronium 50 MG/5 ML Vial ONE (08:00)
[2018-04-07] MEDS ORDERED: Dexamethasone 4 MG/ML SDV ONE (08:00)
[2018-04-07] MEDS ORDERED: Ondansetron 4 MG/2 ML SDV ONE (08:00)
[2018-04-07] MEDS ORDERED: Glycopyrrolate 0.2 MG/ML 5 ML MDV ONE (08:00)
[2018-04-07] MEDS ORDERED: Neostigmine Methylsulfate 1 MG/ML 5 ML Syringe ONE (08:00)
[2018-04-07] MEDS ORDERED: Succinylcholine 200 MG/10 ML MDV ONE (08:00)
[2018-04-07] MEDS ORDERED: fentaNYL 250 MCG/5 ML SDV ONE ×2 (08:01→09:09)
[2018-04-07] MEDS ORDERED: Ropivacaine 26 ML, Dexamethasone 8 MG, EPINEPHrine 0.4 MG, Sodium Chloride 0.9% 51.6 ML NERVRT SCH ×4 (08:30)
[2018-04-07] MEDS ORDERED: Ketamine 500 MG/5 ML MDV IV SCH (08:30)
[2018-04-07] MEDS ORDERED: Bupivacaine 0.5%/EPINEPHrine 1:200,000 50 ML MDV ONE (08:51)
[2018-04-07] MEDS ORDERED: Cetirizine 10 MG Tab PO PRN (10:54)
[2018-04-07] MEDS ORDERED: LORazepam 1 MG Tab PO PRN (11:00)
[2018-04-07] MEDS: Levothyroxine 50 MCG Tab PO SCH (11:04)
[2018-04-07] MEDS: lamoTRIgine 25 MG Tab PO SCH ×2 (11:29→21:27)
[2018-04-07] MEDS: hydrOXYzine HCl 100 MG/2 ML SDV IM PRN (11:32)
[2018-04-07] MEDS ORDERED: diphenhydrAMINE 50 MG/ML SDV IVPUSH PRN (12:00)
[2018-04-07] MEDS ORDERED: Metoclopramide 10 MG/2 ML SDV IVPUSH PRN (12:00)
[2018-04-07] MEDS ORDERED: Labetalol 20 MG/4 ML Syringe IVPUSH PRN (12:00)
[2018-04-07] MEDS: cefOXitin 2 GM in Sodium Chloride 0.9% 50 ML IV SCH ×2 (15:06→19:37)
[2018-04-07] MEDS: Nystatin Susp 100,000 Unit/ML 5 ML UD Cup PO SCH ×2 (15:09→21:28)
[2018-04-07] MEDS: Clotrimazole 10 MG Troche PO SCH ×2 (15:10→21:27)
[2018-04-07] MEDS: Gabapentin 250 MG/5 ML Solution ML 470 ML Bottle PO SCH ×2 (15:14→21:32)
[2018-04-07] MEDS: MVI, Adult with Vitamin K 10 ML, Thiamine 200 MG, Chromium/Copper/Mang/Selen/Zn 1 ML in... IV SCH ×4 (16:02)
[2018-04-07] MEDS: Pantoprazole 40 MG Vial IVPUSH SCH (19:39)
[2018-04-07] MEDS ORDERED: QUEtiapine 50 MG Tab.SR PO SCH (21:00)
[2018-04-07] MEDS ORDERED: Timolol Maleate 0.5% Ophth Soln 5 ML Bottle EYEBOTH SCH (21:00)
[2018-04-07] MEDS: Donepezil 10 MG Tab PO SCH (21:26)
[2018-04-07] MEDS: QUETIAPINE PO SCH ×2 (21:26)
[2018-04-07] MEDS: Dextrose 5%-Lactated Ringers 1,000 ML IV SCH (22:23)
[2018-04-08] MEDS: cefOXitin 2 GM in Sodium Chloride 0.9% 50 ML IV SCH (03:00)
[2018-04-08] MEDS ORDERED: Iohexol 647 MG/ML 50 ML SDV PO STA (04:13)
[2018-04-08] MEDS: Dextrose 5%-Lactated Ringers 1,000 ML IV SCH ×2 (04:50→22:42)
[2018-04-08] MEDS: Nystatin Susp 100,000 Unit/ML 5 ML UD Cup PO SCH ×4 (05:21→21:31)
[2018-04-08] MEDS: Levothyroxine 50 MCG Tab PO SCH (07:23)
[2018-04-08] MEDS: Gabapentin 250 MG/5 ML Solution ML 470 ML Bottle PO SCH ×3 (08:17→21:28)
[2018-04-08] MEDS: lamoTRIgine 25 MG Tab PO SCH ×2 (08:17→21:30)
[2018-04-08] MEDS: Clotrimazole 10 MG Troche PO SCH ×3 (08:17→21:30)
[2018-04-08] MEDS: SCOPOLAMINE PATCH CHECK TOP SCH (08:18)
[2018-04-08] MEDS: TIMOLOL MALEATE 0.5% EYEBOTH SCH (08:18)
[2018-04-08] MEDS: Celecoxib 200 MG Cap PO SCH (08:48)
[2018-04-08] MEDS: Magnesium Sulfate/Water 2 GM in Premix Bag 1 BAG IV SCH ×3 (09:57→21:31)
--- NOTE | 2018-04-08 10:48 | PN ---
DATE OF SERVICE: 04/08/2018 The patient has been afebrile with stable vital signs. Tolerated around 780 mL of oral intake yesterday, and upper GI is a little bit slow in terms of emptying, but does appear to be emptying. There is no distention of the Ramiro limb. We will go up to step-2 diet today. We will also start some tube feedings via the G-tube. Her urine output has been quite high. We will back down on the IV rate to 40 mL an hour. We will continue the RIB BENDER for pain control today. Kenneth White MD /[id number]
[2018-04-08] MEDS: Tamsulosin 0.4 MG Cap.ER PO SCH ×2 (14:47→21:30)
[2018-04-08] MEDS: MVI, Adult with Vitamin K 10 ML, Thiamine 200 MG, Chromium/Copper/Mang/Selen/Zn 1 ML in... IV SCH ×4 (16:36)
[2018-04-08] MEDS: Pantoprazole 40 MG Vial IVPUSH SCH (19:53)
[2018-04-08] MEDS: Donepezil 10 MG Tab PO SCH (21:29)
[2018-04-08] MEDS: QUETIAPINE PO SCH ×2 (21:30)
[2018-04-09] MEDS: Magnesium Sulfate/Water 2 GM in Premix Bag 1 BAG IV SCH ×4 (04:06→22:09)
[2018-04-09] MEDS: Nystatin Susp 100,000 Unit/ML 5 ML UD Cup PO SCH ×4 (05:36→22:08)
[2018-04-09] MEDS ORDERED: Bupivacaine 0.5% 50 ML MDV ONE (06:46)
[2018-04-09] MEDS ORDERED: Meropenem 500 MG SDV ONE (06:46)
[2018-04-09] MEDS ORDERED: Lidocaine 1% with EPINEPHrine 1:100,000 50 ML MDV ONE (06:46)
[2018-04-09] MEDS ORDERED: Propofol 200 MG/20 ML SDV ONE (06:56)
[2018-04-09] MEDS ORDERED: Ropivacaine 26 ML, Dexamethasone 8 MG, EPINEPHrine 0.4 MG, Sodium Chloride 0.9% 51.6 ML NERVRT SCH ×4 (08:00)
[2018-04-09] MEDS: Clotrimazole 10 MG Troche PO SCH ×3 (08:31→21:43)
[2018-04-09] MEDS: Levothyroxine 50 MCG Tab PO SCH (08:31)
[2018-04-09] MEDS: TIMOLOL MALEATE 0.5% EYEBOTH SCH (08:31)
[2018-04-09] MEDS: lamoTRIgine 25 MG Tab PO SCH ×2 (08:31→22:03)
[2018-04-09] MEDS: Celecoxib 200 MG Cap PO SCH (08:31)
[2018-04-09] MEDS: SCOPOLAMINE PATCH CHECK TOP SCH (08:41)
[2018-04-09] MEDS: Gabapentin 250 MG/5 ML Solution ML 470 ML Bottle PO SCH ×3 (08:43→22:04)
--- NOTE | 2018-04-09 08:48 | PN ---
DATE OF SERVICE: 04/07/2018 The patient was admitted overnight with a small bowel volvulus. There is also a large part of sigmoid colon involved within the volvulus itself. The patient has a fair bit of problems with chronic constipation; plan will be to proceed with exploratory laparotomy, reduction of volvulus, and closure of any internal hernias identified with large and/or small bowel resection as indicated. Potential risks were reviewed with the patient. She does have some mental disability but is able to understand the procedure, it would appear, quite well. We will proceed with surgery later this morning. Kenneth White MD /[id number]
[2018-04-09] MEDS ORDERED: Cyanocobalamin (Vitamin B12) 1,000 MCG/ML SDV IM ONE (09:00)
--- NOTE | 2018-04-09 09:15 | CR ---
UGI wo KUB HISTORY: eval R -Y GBP FINDINGS: After administration of oral contrast, upright views were obtained. Post operative changes gastric bypass. Surgical drains in place. No evidence for leak. Contrast passes freely into proximal small bowel loops. There is no significant progression on delayed image. IMPRESSION: No evidence for leak Contrast progresses to the proximal small bowel above the anastomosis. The this did not change on the delayed image. Follow-up upright abdominal views recommended.
--- NOTE | 2018-04-09 09:41 | CR ---
Abdomen 2V AP Flat Upright CLINICAL HISTORY: Feeding tube FINDINGS: There is a feeding tube seen in the left upper quadrant. Patient is status post the gastric bypass Ramiro-en-Y. Contrast is seen in the right lower quadrant bowel loops IMPRESSION: Status post the Ramiro-en-Y gastric bypass Interval placement of the feeding tube No evidence of obstruction
[2018-04-09] MEDS: Docusate Sodium 100 MG Cap PO SCH ×2 (09:50→21:43)
[2018-04-09] MEDS: Ondansetron 4 MG/2 ML SDV IV PRN (13:21)
[2018-04-09] MEDS: MVI, Adult with Vitamin K 10 ML, Thiamine 200 MG, Chromium/Copper/Mang/Selen/Zn 1 ML in... IV SCH ×4 (15:26)
--- NOTE | 2018-04-09 20:03 | PN ---
DATE OF SERVICE: 04/09/2018 SUBJECTIVE: Reshma is n.p.o. She will be having a delayed primary closure today. Pain is controlled. She has been sleeping well. Vital signs have been stable and oral intake was 1290. She is getting gastrostomy tube feedings and had a total of 973 mL. During the night, she did report some nausea and she had 200 mL residual. Layton catheter was replaced due to urinary retention. REVIEW OF SYSTEMS: Remainder of review of systems negative for any pertinent positives and negatives. OBJECTIVE: GENERAL: Reshma Melendez is a 62-year-old female. She is sleepy, but alert. VITAL SIGNS: TPR 97, 86, 13, and blood pressure is 105/48. HEENT: Negative. NECK: Supple. HEART: Regular rate and rhythm. LUNGS: Clear. ABDOMEN: Dressings dry and intact. Abdominal binder is on. EXTREMITIES: Without peripheral edema. ASSESSMENT: Exploratory laparotomy with reduction of small bowel volvulus and closure of internal hernia, small bowel resection, resection of transverse colon and placement of Interceed mesh to displace small bowel from pelvis for small bowel volvulus, small bowel biliary pancreatic limb stump distortion of jejunostomy portion involving transverse colon volvulus. Date of surgery 04/07/2018. PLAN: Orders to be written postoperatively after delayed primary closure. Jaida Thomas PA-C /[id number]
[2018-04-09] MEDS: Dextrose 5%-Lactated Ringers 1,000 ML IV SCH (21:28)
[2018-04-09] MEDS: Pantoprazole 40 MG Vial IVPUSH SCH (21:41)
[2018-04-09] MEDS: Donepezil 10 MG Tab PO SCH (21:42)
[2018-04-09] MEDS: Tamsulosin 0.4 MG Cap.ER PO SCH (21:43)
[2018-04-09] MEDS: QUETIAPINE PO SCH ×2 (22:03)
[2018-04-10] MEDS: Magnesium Sulfate/Water 2 GM in Premix Bag 1 BAG IV SCH (04:09)
[2018-04-10] MEDS: Nystatin Susp 100,000 Unit/ML 5 ML UD Cup PO SCH ×4 (06:05→21:37)
[2018-04-10] MEDS: HYDROmorphone/Normal Saline 15 MG/30 ML PCA IV PRN (06:32)
[2018-04-10] MEDS: Ondansetron 4 MG Tab.DIS PO PRN (08:28)
[2018-04-10] MEDS: Celecoxib 200 MG Cap PO SCH (08:30)
[2018-04-10] MEDS: Levothyroxine 50 MCG Tab PO SCH (08:30)
[2018-04-10] MEDS: Clotrimazole 10 MG Troche PO SCH ×3 (08:35→21:37)
[2018-04-10] MEDS: lamoTRIgine 25 MG Tab PO SCH ×2 (08:35→21:37)
[2018-04-10] MEDS: Docusate Sodium 100 MG Cap PO SCH ×2 (08:35→21:37)
[2018-04-10] MEDS: Bisacodyl 5 MG Tab PO SCH ×2 (08:35→21:37)
[2018-04-10] MEDS: TIMOLOL MALEATE 0.5% EYEBOTH SCH (08:35)
[2018-04-10] MEDS: Gabapentin 250 MG/5 ML Solution ML 470 ML Bottle PO SCH ×3 (08:40→21:37)
--- NOTE | 2018-04-10 09:02 | PN ---
DATE OF SERVICE: 04/10/2018 SUBJECTIVE: Reshma had her delayed primary closure yesterday. She tolerated her tube feedings last night at 30 mL/hour. Temp max 99. Blood pressures have been running low, which is normal for her. She has been up ambulating. Oral intake 1580. Her Layton catheter had an output of 3200, and this was discontinued. Today, she has not voided yet. REVIEW OF SYSTEMS: Remainder of review of systems negative for any pertinent positives and negatives. OBJECTIVE: GENERAL: Reshma Melendez is a 62-year-old female. VITAL SIGNS: TPR is 97.5, 78, 18, and blood pressure 91/66. HEENT: Negative. NECK: Supple. HEART: Regular rate and rhythm. LUNGS: Clear. ABDOMEN: Gastrostomy tube in place. Dressings dry and intact. Abdominal binder is on. EXTREMITIES: Without peripheral edema. ASSESSMENT: 1. Delayed primary closure, 04/09/2018. 2. Exploratory laparotomy with reduction of small bowel volvulus and closure of internal hernia, small bowel resection, resection of transverse colon and placement of Interceed mesh to displace small bowel from pelvis for small bowel volvulus, small bowel biliary pancreatic limb stump, distortion of the jejunostomy portion involving the transverse colon volvulus. Date of surgery, 04/07/2018. 3. Gastrostomy tube feeding for malnutrition and excessive weight loss. 4. Status post partial gastrectomy. 5. Unspecified surgical malabsorption. 6. B12 deficiency. PLAN: 1. Increase gastrostomy tubes to 50 mL/hour. 2. Dulcolax 2 tabs p.o. b.i.d. Discontinue after bowel movement. 3. Discontinue PHYSICIAN SURGEON and continuous pulse ox. 4. Bucks 5/325 mg 1 to 2 every 4 hours p.r.n. pain. 5. Zofran ODT 4 mg q.4 hours p.r.n. nausea. 6. Dressing off, may shower. 7. We will evaluate p.r.n. or in a.m. Jaida Thomas PA-C /[id number]
--- NOTE | 2018-04-10 09:18 | PN ---
DATE OF SERVICE: 04/09/2018 The patient has been afebrile with stable vital signs. She tolerated some dye yesterday, and the abdominal x-ray shows the contrast, which was hanging up a little bit yesterday, well down in the pelvis and probably in the large bowel for the most part. She underwent a delayed primary closure earlier today, and we will restart the diet. We plan to take the Layton catheter out tomorrow and then check some labs along with starting some stool softener today. Kenneth White MD /[id number]
--- NOTE | 2018-04-10 10:46 | CR ---
Abdomen Series w Chest 1V CLINICAL HISTORY: Abdominal pain FINDINGS: No free air is identified. The there is a gastrostomy tube in the left upper quadrant. Luz ent has had previous abdominal surgery. The small intestinal gas pattern is nonspecific. There is mod erate gaseous distention of the colon. There is moderate retained stool. IMPRESSION: Moderate gaseous distention of the colon with moderate retained stool Gastrostomy tube is in the left upper quadrant Nonacute small intestinal gas pattern
--- NOTE | 2018-04-10 13:02 | OR ---
DATE OF PROCEDURE: 04/09/2018 PREOPERATIVE DIAGNOSIS: Open abdominal incision. POSTOPERATIVE DIAGNOSIS: Open abdominal incision. OPERATIVE PROCEDURE: Delayed primary closure of open abdominal incision. ANESTHESIA: IV sedation plus local. INDICATIONS FOR PROCEDURE: The patient is 48 hours status post open laparotomy, which showed some inherent contamination of the subcutaneous tissue and it was felt to be at high risk for a wound infection. Primary closure was undertaken. The wound was packed open for a planned delayed primary closure at this time. Potential risks including bleeding and infection were reviewed, and the patient wishes to proceed. DETAILS OF PROCEDURE: The patient was taken to the operating room and placed in a supine position sitting somewhat upright to minimize chances of aspiration risk. The previous operative dressing was taken down and the wound was judged to be clean. Bilateral subcostal transversus abdominis plane blocks were then placed at this time using continuous ultrasound guidance and the standard solution being injected bilaterally. The incision was then prepped and draped, anesthetized with 1% lidocaine, mixed with Marcaine, and irrigated with meropenem-containing saline solution. Incision was closed with 2 layers of 3-0 and 4-0 Vicryl stitch deep and stephani for the skin. Dressing was applied. The patient was taken to the recovery room in a satisfactory condition. Kenneth White MD /[id number]
[2018-04-10] MEDS: Acetaminophen/HYDROcodone 325-5 MG Tab PO PRN ×2 (13:54→20:00)
[2018-04-10] MEDS: Multivitamins with Iron Tab.Chew CHEW SCH (15:05)
[2018-04-10] MEDS: Donepezil 10 MG Tab PO SCH (21:36)
[2018-04-10] MEDS: Pantoprazole 40 MG Tab.CR PO SCH (21:37)
[2018-04-10] MEDS: Tamsulosin 0.4 MG Cap.ER PO SCH (21:37)
[2018-04-10] MEDS: QUETIAPINE PO SCH ×2 (21:38)
[2018-04-10] MEDS: Dextrose 5%-Lactated Ringers 1,000 ML IV SCH (21:45)
[2018-04-11] MEDS: Ondansetron 4 MG Tab.DIS PO PRN ×2 (02:36→12:38)
[2018-04-11] MEDS: Acetaminophen/HYDROcodone 325-5 MG Tab PO PRN ×3 (02:38→17:11)
[2018-04-11] MEDS: Nystatin Susp 100,000 Unit/ML 5 ML UD Cup PO SCH ×4 (06:22→22:42)
--- NOTE | 2018-04-11 08:16 | PN ---
DATE OF SERVICE: 04/11/2018 SUBJECTIVE: Reshma had an oral intake of 1060. She tolerated her gastrostomy tube feedings well. She is receiving Dulcolax 2 tabs twice a day. She has not had a bowel movement. She states she is burping, but not passing any flatus. Temp max of 99.5. Up ambulating, not tolerating step-3 diet very well, so she chose more step-2 foods, and would like to go back to having a step-2 diet. Oral intake for the past 24 hours is 1060. She consumed 60%, 50%, and 80% of breakfast, lunch, and dinner. REVIEW OF SYSTEMS: Remainder of review of systems negative for any pertinent positives and negatives. OBJECTIVE: GENERAL: Reshma Melendez is a 62-year-old female, alert and orientated. VITAL SIGNS: TPR is 99.5, 79, 12, and blood pressure 127/59. HEENT: Negative. NECK: Supple. HEART: Regular rate and rhythm. LUNGS: Clear. ABDOMEN: Dressings dry and intact. Feeding tube intact. EXTREMITIES: Without peripheral edema. ASSESSMENT: 1. Delayed primary closure on 04/09/2018. 2. Exploratory laparotomy with reduction of small bowel volvulus, closure of internal hernia, small bowel resection, resection of transverse colon and placement of Interceed mesh to displace small bowel from pelvis for small bowel volvulus, small bowel biliary pancreatic limb stump, distortion of the jejunostomy portion involving the transverse colon volvulus. Date of surgery, 04/07/2018. 3. Gastrostomy tube feedings for malnutrition and excessive weight loss. 4. Status post partial gastrectomy. 5. Unspecified surgical malabsorption. 6. B12 deficiency. PLAN: 1. Increase gastrostomy tube feedings to 80 mL/hour per same schedule of time given and same protein supplement. 2. Step-2 double portions. 3. Milk of magnesia 30 mL b.i.d. 4. Plan discharge in a.m. if oral intake adequate and tolerates the increase in gastrostomy tube feedings. Jaida Thomas PA-C /[id number]
[2018-04-11] MEDS: Celecoxib 200 MG Cap PO SCH (08:48)
[2018-04-11] MEDS: Bisacodyl 5 MG Tab PO SCH ×2 (08:48→22:35)
[2018-04-11] MEDS: Multivitamins with Iron Tab.Chew CHEW SCH (08:49)
[2018-04-11] MEDS: lamoTRIgine 25 MG Tab PO SCH ×2 (08:49→22:35)
[2018-04-11] MEDS: Levothyroxine 50 MCG Tab PO SCH (08:49)
[2018-04-11] MEDS: Docusate Sodium 100 MG Cap PO SCH ×2 (08:50→22:35)
[2018-04-11] MEDS: Magnesium Hydroxide 400 MG/5 ML Susp 30 ML Cup PO SCH ×2 (08:50→22:36)
[2018-04-11] MEDS: TIMOLOL MALEATE 0.5% EYEBOTH SCH (08:52)
[2018-04-11] MEDS: Clotrimazole 10 MG Troche PO SCH ×3 (08:53→22:36)
[2018-04-11] MEDS: Gabapentin 250 MG/5 ML Solution ML 470 ML Bottle PO SCH ×3 (08:56→22:36)
[2018-04-11] MEDS: Ondansetron 4 MG/2 ML SDV IV PRN (11:58)
[2018-04-11] MEDS: hydrOXYzine HCl 100 MG/2 ML SDV IM PRN ×2 (12:45→19:35)
[2018-04-11] MEDS ORDERED: Dextrose 5%-Lactated Ringers 1,000 ML IV SCH (20:16)
[2018-04-11] MEDS ORDERED: HYDROmorphone/Normal Saline 15 MG/30 ML PCA IV SCH (20:30)
[2018-04-11] MEDS: Lactated Ringers 750 ML IV ONE ×2 (21:08→22:45)
[2018-04-11] MEDS ORDERED: Sodium Chloride 0.9% 10 ML Syringe FLUSH PRN (21:13)
[2018-04-11] MEDS ORDERED: Sodium Chloride 0.9% 80 ML IV SCH (21:15)
[2018-04-11] MEDS ORDERED: Iopamidol 612 MG/ML 100 ML Bottle IV SCH (21:15)
[2018-04-11] MEDS ORDERED: Meropenem 1 GM in Sodium Chloride 0.9% 100 ML IV SCH (22:00)
[2018-04-11] MEDS ORDERED: Linezolid 600 MG in Premix Bag 1 BAG IV SCH (22:00)
[2018-04-11] MEDS ORDERED: Aztreonam 1 GM in Sodium Chloride 0.9% 100 ML IV SCH (22:00)
[2018-04-11 22:07] VITALS: BP 72/55
--- NOTE | 2018-04-11 22:33 | PCM.CONS ---
H&P History of Present Illness - General Date of Service: 04/11/18 Admit Problem/Dx: Source of Information: Patient, Family, Provider, RN Notes Reviewed History Limitations: Reports: Altered Mental Status (Lethargy) - History of Present Illness Initial Comments - Free Text/Narative: Ms. Melendez is a 62-year-old woman who I been asked to see this evening by Dr. White for further suggestions concerning evaluation and management of hypotension, tachycardia, hypoxia, and abdominal pain. She was admitted to this facility 5 days ago on 06 April with nausea and abdominal pain. CT scan at that time suggested small intestine volvulus. She was seen and evaluated by Dr. White and taken to the operating room the next day for resection of the large redundant transverse colon as well as partial small bowel resection. She has a chronic gastric feeding tube in place past 2 months because of poor oral intake. Nursing staff noted this evening progressive abdominal distention with evolving tachycardia and hypotension. She collapsed well in the bathroom and was placed back in bed, at that time was noted to have systolic pressures into the low 80s with hypoxia. Emergent CT scan of the abdomen and pelvis and chest is been obtained and shows evidence of free air as well as possible sigmoid and cecal volvulus. Antibiotic therapy has been initiated with Zosyn and she is receiving vigorous IV fluid replacement. Pressures at one point did drop into the mid 70s but have improved with aggressive fluid replacement. She has been seen by Dr. White and plan is to take her back to the operating room for exploratory laparotomy. incisional Pain Score (Numeric/FACES): 10 - Related Data Allergies/Adverse Reactions: Allergies Allergy/AdvReac Type Severity Reaction Status Date / Time calcipotriene Allergy Other Verified 04/06/18 19:48 pollen extracts Allergy Other Verified 04/06/18 19:48 Home Medications: Home Meds Cetirizine HCl [Zyrtec] 10 mg PO DAILY 01/14/14 [History] Levothyroxine [Synthroid] 50 mcg PO ACBRK 01/14/14 [History] lamoTRIgine [Lamictal] 50 mg PO BID 01/14/14 [History] Clotrimazole [Mycelex] 10 mg PO .TIDQOD 09/05/16 [History] Clobetasol [Temovate 0.05% Oint] 15 gm TOP BID 09/27/16 [History] Donepezil [Aricept] 5 mg PO BEDTIME 09/27/16 [History] LORazepam [Ativan] 1 mg PO DAILY 09/27/16 [History] Multivitamin W/Iron, Minerals [Flintstones Complete] 1 each PO BID #100 tab.chew 10/03/16 [Rx] Ondansetron [Zofran] 4 mg PO Q4HR PRN 07/21/17 [History] Polyethylene Glycol 3350 [MiraLAX] 17 gm PO DAILY PRN 07/21/17 [History] Cyanocobalamin (Vitamin B-12) [B-12] 2,500 mcg PO DAILY 02/01/18 [History] Dicyclomine [Bentyl] 10 mg PO Q4H PRN 02/01/18 [History] Docusate Sodium [DOK] 200 mg PO BID 02/01/18 [History] QUEtiapine [SEROquel] 300 mg PO BEDTIME 02/01/18 [History] Thiamine [Vitamin B-1] 100 mg PO DAILY 02/01/18 [History] Calcium Phosphate Trib/Vit D3 [Citracal + D3 Gummies] 1 tab PO BID 02/05/18 [ History] Ferrous Fumarate/Vitamin C [Vitron-C] 1 tab PO BID 02/05/18 [History] Timolol [Betimol 0.5% Ophth Soln] 1 drop EYEBOTH BEDTIME 02/05/18 [History] Acetaminophen [Tylenol] 650 mg PO Q4H PRN tablet 02/09/18 [Rx] Megestrol [Megace 40 MG/ML Susp] 10 ml PO BID #0 02/09/18 [Rx] Clotrimazole [Mycelex] 10 mg PO TID 04/07/18 [History] Nystatin [Mycostatin] 5 ml PO QID 04/07/18 [History] QUEtiapine Fumarate [Seroquel] 400 mg PO BEDTIME 04/07/18 [History] Past Medical History HEENT History: Reports: Hard of Hearing, Impaired Vision Other HEENT History: wears glasses/hearing aides Cardiovascular History: Reports: High Cholesterol Gastrointestinal History: Reports: Chronic Constipation, GERD Musculoskeletal History: Reports: Back Pain, Chronic Psychiatric History: Reports: Bipolar, Dementia Endocrine/Metabolic History: Reports: Hypothyroidism Oncologic (Cancer) History: Reports: Breast Dermatologic History: Reports: Psoriasis - Infectious Disease History Infectious Disease History: Reports: Chicken Pox Other Infectious Disease History: unsure - Past Surgical History Head Surgeries/Procedures: Reports: None HEENT Surgical History: Reports: Cataract Surgery, Oral Surgery Cardiovascular Surgical History: Reports: None GI Surgical History: Reports: Colonoscopy, EGD, Surinder Fundoplication Endocrine Surgical History: Reports: None Musculoskeletal Surgical History: Reports: None Oncologic Surgical History: Reports: Mastectomy Other Oncologic Surgeries/Procedures: mastectomy on left side Dermatological Surgical History: Reports: None Social & Family History - Family History Family Medical History: Noncontributory Oncologic: Reports: Other (See Below) Other Oncologic Family History: stomach - Tobacco Use Smoking Status *Q: Current Every Day Smoker Years of Tobacco use: 1 Packs/Tins Daily: 0.5 Used Tobacco, but Quit: No Second Hand Smoke Exposure: Yes - Caffeine Use Caffeine Use: Reports: Coffee - Alcohol Use Days Per Week of Alcohol Use: 0 - Recreational Drug Use Recreational Drug Use: No H&P Review of Systems - Review of Systems: Review Of Systems: See Below General: Reports: Malaise, Weakness Pulmonary: Reports: No Symptoms Cardiovascular: Reports: No Symptoms Gastrointestinal: Reports: Abdominal Pain, Distension. Denies: Nausea, Vomiting Genitourinary: Reports: No Symptoms Exam - Exam Exam: See Below - Vital Signs Vital Signs: Last Vital Signs Temp 96.5 F 04/11/18 21:30 Pulse 124 H 04/11/18 21:45 Resp 27 H 04/11/18 21:45 BP 72/55 L 04/11/18 21:45 Pulse Ox 100 04/11/18 21:45 Weight: 123 lb - Exam General: Lethargic Neck: Supple, Trachea Midline, +2 Carotid Pulse wo Bruit Lungs: Clear to Auscultation, Normal Respiratory Effort Cardiovascular: Regular Rhythm, Normal S1, Normal S2, Tachycardia GI/Abdominal Exam: Distended, Guarding, Rigid, Rebound, Tender, Abnormal Bowel Sounds Extremities: Non-Tender, No Pedal Edema - Patient Data Lab Results Last 24 hrs: Laboratory Results - last 24 hr 04/11/18 04/11/18 Range/Units 21:08 21:50 WBC 10.0 (4.5-11.0) K/uL RBC 2.93 L (3.30-5.50) M/uL Hgb 10.3 L (12.0-15.0) g/dL Hct 31.0 L (36.0-48.0) % MCV 106 H (80-98) fL MCH 35 H (27-31) pg MCHC 33 (32-36) % Plt Count 344 (150-400) K/uL Neut % (Auto) 87 H (36-66) % Lymph % (Auto) 8 L (24-44) % [place] % (Auto) 5 (2-6) % Eos % (Auto) 0 L (2-4) % Baso % (Auto) 0 (0-1) % Puncture Site Rt radial ABG pH 7.258 L (7.350-7.450) ABG pCO2 32.9 L (35.0-42.0) mmHg ABG pO2 113.0 H (75.0-100.0) mmHg ABG HCO3 14.2 L (22.0-26.0) mmol/L ABG Total CO2 13.6 L (21.0-25.0) mmol/L ABG O2 Saturation 97.4 (95.0-98.0) % ABG O2 Content 13.1 L (15.0-23.0) %vol ABG Base Excess -11.6 mm/L ABG Hemoglobin 9.6 L (12.0-16.0) g/dL ABG Oxyhemoglobin 95.7 % ABG Carboxyhemoglobin 1.0 (0.0-1.6) % ABG Methemoglobin 0.7 % [place] Test Pass O2 Delivery Device Nasal cannula Oxygen Flow Rate 4 L Result Diagrams: 04/11/18 21:08 04/10/18 04:33 Consult PN Assessment/Plan Procedures: Procedures ASSAY OF FERRITIN (02/05/18) ASSAY OF FOLIC ACID SERUM (02/05/18) ASSAY OF MAGNESIUM (02/05/18) ASSAY OF PHOSPHORUS (02/05/18) BLOOD TYPING SEROLOGIC ABO (09/29/16) BLOOD TYPING SEROLOGIC RH(D) (09/29/16) COMP SCREEN MAMMOGRAM ADD-ON (09/05/14) COMPLETE CBC AUTOMATED (02/05/18) COMPREHEN METABOLIC PANEL (02/05/18) COMPUTER DX MAMMOGRAM ADD-ON (09/19/16) CULTURE OTHR SPECIMN AEROBIC (07/24/17) CULTURE SCREEN ONLY (09/05/16) EGD BIOPSY SINGLE/MULTIPLE (09/05/16) EGD DIAGNOSTIC BRUSH WASH (08/21/17) FUNGUS ISOLATION CULTURE (08/21/17) MAMMOGRAM ONE BREAST (07/30/13) MEASURE BLOOD OXYGEN LEVEL (02/05/18) MICROBE SUSCEPTIBLE AL (07/24/17) MYCOBACTERIA CULTURE (07/24/17) RBC ANTIBODY SCREEN (09/29/16) ROUTINE VENIPUNCTURE (02/05/18) SMEAR FLUORESCENT/ACID STAI (07/24/17) SMEAR GRAM STAIN (07/24/17) SPECIMEN INFECT AGNT CONCNTJ (07/24/17) TISSUE EXAM BY PATHOLOGIST (09/29/16) TISSUE EXAM BY PATHOLOGIST (09/05/16) TISSUE EXAM FOR FUNGI (08/21/17) TRANSVAGINAL US NON-OB (09/17/15) VITAMIN B-12 (02/05/18) X-RAY UPPER GI DELAY W/O KUB (09/29/16) Problem List Initiated/Reviewed/Updated: Yes My Orders Last 24 Hours: My Active Orders 04/11/18 22:00 Aztreonam [Azactam] 1 gm Sodium Chloride 0.9% [Normal Saline] 100 ml IV Q8HR Meropenem [Merrem] 1 gm Sodium Chloride 0.9% [Normal Saline] 100 ml IV Q8H 04/11/18 22:30 Linezolid [Zyvox] 300 ml IV Q12H Plan: ASSESSMENT AND RECOMMENDATIONS ACUTE ABDOMEN WITH SEPSIS-associated hypotension, tachycardia, hypoxia. CT scan shows evidence of free air within the abdomen, possible sigmoid and cecal volvuli. Laboratories tests show evidence of acidosis with partial respiratory compensation. -Vigorous IV fluid replacement -IV antibiotics;Zosyn, as Azactam, Zyvox -Emergent exploratory laparotomy per Dr. White 75 minutes of critical care time were spent in the direct care and management of this patient in the intensive care unit Requesting Provider: JAX Date Consult Requested: 04/11/18 Reason for Consult: Acute abdomen, hypotension, tachycardia, hypoxia Patient History Reviewed: Yes Admission H&P Reviewed: Yes Notified Requestor: Yes
[2018-04-11] MEDS: Donepezil 10 MG Tab PO SCH (22:35)
[2018-04-11] MEDS: Tamsulosin 0.4 MG Cap.ER PO SCH (22:35)
[2018-04-11] MEDS: Pantoprazole 40 MG Tab.CR PO SCH (22:36)
[2018-04-11] MEDS: QUETIAPINE PO SCH ×2 (22:36)
[2018-04-11] MEDS ORDERED: Meropenem 500 MG SDV ONE (22:38)
[2018-04-11] MEDS ORDERED: Succinylcholine 200 MG/10 ML MDV ONE (22:42)
[2018-04-11] MEDS ORDERED: Ondansetron 4 MG/2 ML SDV ONE (22:42)
[2018-04-11] MEDS ORDERED: Glycopyrrolate 0.2 MG/ML 5 ML MDV ONE (22:42)
[2018-04-11] MEDS ORDERED: Propofol 200 MG/20 ML SDV ONE (22:42)
[2018-04-11] MEDS ORDERED: fentaNYL 250 MCG/5 ML SDV ONE (22:42)
[2018-04-11] MEDS ORDERED: Rocuronium 50 MG/5 ML Vial ONE (22:42)
[2018-04-11] MEDS ORDERED: Neostigmine Methylsulfate 1 MG/ML 5 ML Syringe ONE (22:42)
[2018-04-11] MEDS ORDERED: Dexamethasone 4 MG/ML SDV ONE (22:42)
[2018-04-11] MEDS ORDERED: Sodium Bicarbonate 8.4% 50 MEQ/50 ML Syringe ONE (23:29)
[2018-04-11] MEDS ORDERED: Lactated Ringers 1,000 ML ONE (23:52)
[2018-04-12] MEDS ORDERED: Aztreonam/Dextrose-Water 1 GM in Premix Bag 1 BAG IV SCH (08:00)
--- NOTE | 2018-04-12 08:42 | CR ---
Abdomen 1V Flat CLINICAL HISTORY: No surgical count done FINDINGS: Patient is status post the Ramiro-en-Y gastric bypass. There is a gastrostomy tube in the lef t upper quadrant. There is some air-filled colon on the left. Gas has traversed the descending colon. There is contrast in both collecting systems. This is likely from patient's prior CT. There is some pelvocaliectasis. There is contrast in the bladder. Impression: Status post gastric bypass Gastrostomy tube in the stomach Persistent contrast within the collecting system with mild bilateral pelvocaliectasis. Patient had a CT with contrast 5 days prior. This should be correlated with clinical findings such as urinary outpu t. ICU was notified at the time of this dictation at 8:37 AM
--- NOTE | 2018-04-12 11:36 | OR ---
DATE OF PROCEDURE: 04/07/2018 PREOPERATIVE DIAGNOSIS: Small bowel obstruction. POSTOPERATIVE DIAGNOSES: 1. Small bowel volvulus. 2. 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 3. Megacolon involving transverse colon volvulus. OPERATIVE PROCEDURES: Exploratory laparotomy with: 1. Reduction of small bowel volvulus and closure of internal hernia (82548). 2. Resection of biliopancreatic limb stump adjacent to jejunojejunostomy (89714). 3. Resection of transverse colon (48088). 4. Placement of Interceed mesh to displace viscera from pelvic and abdominal wall to limit recurrent adhesion formation (41839). ANESTHESIA: General. INDICATION FOR PROCEDURE: The patient was admitted with a picture of a small bowel obstruction. Overnight, she did have a midgut volvulus. On the CAT scan, it was also felt to involve a volvulus in the sigmoid colon, and this eventually turned out to be a markedly distended and rotated transverse colon. The plan as discussed with the patient will be to proceed with an open laparotomy, reduction of the volvulus, and bowel resections as indicated. The potential risks including bleeding, infection, leaks from various GI tract closures, and problems with further bowel obstruction over time were reviewed along with the possibility of cardiopulmonary, septic, or hemorrhagic complications leading to were discussed, and the patient wishes to proceed. DETAILS OF PROCEDURE: The patient was taken to the operating room and placed in a supine position. After general endotracheal anesthesia was induced, a Layton catheter was inserted, and the abdomen prepped and draped. A midline incision from roughly a handsbreadth below the xiphoid to slightly below the umbilicus was made and carried down through the full thickness of the abdominal wall. Upon entering the peritoneal cavity, general exploration was undertaken. The patient was noted to have a small bowel volvulus through the leaves of the jejunojejunostomy. The bowel involved and volvulus was initially somewhat blum in appearance consistent with some venous hypertension, but once it was reduced, was entirely pink and without evident injury. The patient was noted to have some continued distortion of the jejunojejunostomy related to the mesenteric pull on the biliopancreatic limb stump causing leftward and posterior angulation of the jejunojejunostomy. Given this, the biliopancreatic limb stump was then divided. This was then flushed with the anastomotic area of the jejunojejunostomy. This was divided with a wilkes load, and the underlying mesentery divided with mesenteric loads. The mesenteric defect at this point was then closed with a running 2-0 silk stitch. As discussed earlier, the patient was noted to have a markedly elongated and dilated transverse colon. This did not appear to be related to any palpable tumor or obstruction per se, but certainly would likely become problematic over time. Given this, this area was resected. The bowel proximal and distal extent of the involvement was divided with BEULAH stephani as was the underlying mesentery, and the colon anastomosis was then accomplished with 2 internal firings of the 60 mm BEULAH staplers, and then the common limbs were closed transversely with BEULAH staplers as well, and the angles anastomosed, and mesenteric defect approximated with some 3-0 Vicryl stitch. The anastomosis was then reinforced with some fibrin sealant, and the abdomen irrigated with a meropenem-containing saline solution. A drain was felt not to be necessary. Of note, the gastrostomy tube, while clamped, was not associated with any significant gastric distention at this point, so that was left alone. The patient was without significant mobilizable omentum, and given this was very high risk for significant adhesion formation between the pelvic and abdominal wall and the underlying viscera. Given this, Interceed mesh was placed across the pelvic and abdominal wall, and the midline fascia approximated with a #2 Vicryl stitch. The skin and subcutaneous tissue were noted to have some slight contamination during the course of the procedure and overall were felt to be high risk for wound infection. The skin and subcutaneous tissue were, therefore, packed open for a planned delayed primary closure in 48 hours. Transversus abdominis plane block was also then placed bilaterally with ultrasound guidance, and the patient taken to the recovery room in satisfactory condition. There were no evident complications. Kenneth White MD /[id number]
--- NOTE | 2018-04-15 11:28 | PN ---
DATE OF SERVICE: 04/12/2018 Earlier this evening, Nursing notified me that Ms. Melendez had initially a large amount of output from her gastrostomy tube, and we elected to place that to dependent drainage. Subsequent to that, the patient was noted to develop progressive tachycardia and weakness; although, she was lucid and not complaining much in the way of abdominal pain. The patient was transferred to the intensive care unit. CT scan showed a midgut volvulus once again. On examination, the patient was noted to be very tense in terms of diffuse abdominal distention. Initial blood pressures were somewhat low, but did come up in the 100 range with some IV fluids. The patient appears to have a surgical emergency in her abdomen at this point. This seems to have rapidly progressed in the last few hours. As of this morning, she had a soft abdomen, was tolerating a diet, did in fact take in a fair bit of oral intake today, and in the previous night tolerated the tube feedings at 50 mL/hour without difficulty. The patient is extremely lucid at this point, and her significant other is here and has also been involved. The plan will be to proceed with an exploratory laparotomy. They are both aware that this may be an abdominal catastrophe in terms of bowel ischemia given the overall picture and were aware of the potential risks including possible and other complications such as bleeding, leaks from GI tract closures and such, and they wish to proceed. The patient will be given a combination of meropenem, Azactam, and Zyvox immediately and will be taken to the operating room promptly. We will plan a central line insertion as well. Kenneth White MD /[id number]
--- NOTE | 2018-04-15 15:24 | OR ---
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 OPERATIVE PROCEDURES: Exploratory laparotomy with; 1. Right colectomy (84094). 2. Decompression of small bowel enterotomy (07050). ANESTHESIA: General. INDICATION FOR PROCEDURE: Please see progress note dated earlier this evening. DETAILS OF PROCEDURE: The patient was taken to the operating room and placed in a supine position. After general endotracheal anesthesia was induced, the abdomen was prepped and draped. The previous stephani were taken down and a long midline incision was made from just below the xiphoid to the pubis. Upon entering the abdomen, there was some thin wilkes fluid present, cultures of this were obtained. As one examined the patient, there appeared to be necrosis at the point of the small bowel from a few cm distal to the ligament of Treitz including the Ramiro limb, biliopancreatic limb and common limbs in her small bowel system, and the cecum, ascending colon to the level of mid transverse colon were also necrotic in appearance. The underlying pathology appears to have been an acute development of a cecal volvulus. This became more distended, caused a rotation of the base of the mesentery as the cecal volvulus turned in a clockwise direction if one were viewing the patient from the feet toward the head. This resulted in rotation and complete occlusion of the superior mesenteric artery and vein, resulting in the necrosis of the above areas which would be typical for that arterial distribution. Our goal at this point was to try to see if there was any sufficient small bowel that might be potentially viable. Given this, the volvulus was de-rotated and right colectomy accomplished with division of the distal small bowel and the transverse colon just beyond the previous anastomosis. The underlying mesentery was divided with BEULAH loads and the initial bowel transection with BEULAH loads as well. This then allowed detortion of the mesentery as prior to that the cecal volvulus was so tense that we were not able to detorse it. The small bowel was fairly distended, although not overly tightly. We did do a small enterotomy in the distal end of the divided small bowel and all of the fluid and air were removed from the small bowel including the common limb, biliopancreatic limb, and Ramiro limb, and that area then re-stapled. The bowel remained nonviable in appearance. At this point, her blood pressure was running in the 50s, 60s, 70s, and 80s depending on fluid and other medications given by Anesthesia. The liver, stomach, duodenum were fairly well perfused in appearance as was the left colon, sigmoid colon, and rectum. We left the small bowel warm up over about a half hour period, and at that point while we had the abdominal viscera as noted above, what appeared to be well perfused, the small bowel did not at any point appear to be viable beyond roughly 5 cm distal to the ligament of Treitz. The situation was discussed with the patient's significant other at this point who was also being made in contact with the patient's parents and they are aware that this is a lethal condition at this point. Following this discussion, the patient's abdomen was closed at the skin level with a running 0 Vicryl stitch and patient taken back to the intensive care unit which after a period of time we will plan to proceed with an extubation and comfort cares only. Kenneth White MD /[id number]
--- NOTE | 2018-04-16 07:56 | DISCH ---
Summary DATE OF : 04/12/2018. FINAL DIAGNOSES: 1. secondary to cecal volvulus creating a rotation and complete occlusion of the superior mesenteric artery and vein with necrosis of the bowel from a few centimeters distal to the ligament of Treitz to the mid-transverse colon. 2. Septic shock. SECONDARY DIAGNOSES: 1. Recent gastrostomy tube placement for malnutrition. 2. Recent reduction of small bowel volvulus and transverse colon resection for transverse colon volvulus. ADDITIONAL DIAGNOSES: 1. Bipolar disorder. 2. Fungal esophagitis. 3. History of carcinoma of left breast, status post mastectomy. 4. Treated hypothyroidism. 5. Dyslipidemia. 6. Chronic constipation. 7. Mild neurocognitive disorder. OPERATIVE PROCEDURES: For this admission, on 04/07/2018; 1. Exploratory laparotomy with reduction of volvulus and closure of internal hernia. 2. Small bowel resection. 3. Resection of transverse colon. 4. Placement of Interceed mesh to limit recurrent adhesion formation that was done on 04/07/2018. Then, on 04/12/2018, exploratory laparotomy with right colectomy, decompression of the small bowel followed by a period of observation to rule out any significant small bowel viability. HOSPITAL COURSE: This was a 62-year-old female presenting with picture of a small bowel obstruction on 04/06/2018. This appeared to be fairly stable. She was admitted for hydration. On 04/07/2018, the patient underwent exploratory laparotomy, and she was noted to have a small bowel volvulus through the mesenteric defect between the jejunojejunostomy. This was reduced. The biliopancreatic limb stump, which was causing some distortion of the jejunojejunostomy, was also resected to alleviate that distortion. The mesenteric defect was closed. The patient was noted to have an extremely dilated transverse colon, which appeared to be involved with some chronic degree of volvulus. This was resected with primary anastomosis being accomplished. The cecum at this point appeared to be mobile, but it did not appear to be involved in any chronic volvulus formation, and the sigmoid colon was at this point essentially normal. The patient had been doing well with the tube feedings and oral intake being resumed. She had been passing some gas, but no bowel movement as of yet. On the evening of 04/12/2018, the patient became dramatically worse and the above findings were noted at the time of laparotomy. Please see operative report for details. After being taken back to the ICU with the significant other present, the patient was extubated and, at that point, within a few minutes became asystolic and essentially had no spontaneous respirations following the procedure. The patient was extremely septic related to the bowel necrosis during the early preoperative, intraoperative, and postoperative periods, around the operation of 04/12/2018.
== END 2018-04-12 01:35 | disposition expired | DRG 329 ==
LOC: JP.ED 14:44 → JP.MS 18:29 → JP.ICU 04-11 21:11
PROVIDERS: ADMIT Internal Medicine; ATTEND Hospitalist
PROC: 0DB80ZX Excision of Small Intestine, Open Approach, Diagnostic (ICD-10-PCS; principal; 2018-04-07)
PROC: 0DS80ZZ Reposition Small Intestine, Open Approach (ICD-10-PCS; 2018-04-07)
PROC: 0DQV0ZZ Repair Mesentery, Open Approach (ICD-10-PCS; 2018-04-07)
PROC: 0DBL0ZX Excision of Transverse Colon, Open Approach, Diagnostic (ICD-10-PCS; 2018-04-07)
PROC: 3E0M05Z Introduction of Adhesion Barrier into Peritoneal Cavity, Open Approach (ICD-10-PCS; 2018-04-07)
PROC: 0WQF0ZZ Repair Abdominal Wall, Open Approach (ICD-10-PCS; 2018-04-09)
PROC: 0D980ZX Drainage of Small Intestine, Open Approach, Diagnostic (ICD-10-PCS; 2018-04-12)
DX: K56.2 Volvulus (principal); A41.9 Sepsis, unspecified organism; K55.029 Acute infarction of small intestine, extent unspecified; K55.049 Acute infarction of large intestine, extent unspecified; R65.21 Severe sepsis with septic shock; R10.9 Unspecified abdominal pain; K94.23 Gastrostomy malfunction; K91.2 Postsurgical malabsorption, not elsewhere classified; K59.39 Other megacolon; E87.2 Acidosis; K59.09 Other constipation; F31.9 Bipolar disorder, unspecified; E03.9 Hypothyroidism, unspecified; Z48.1 Encounter for planned postprocedural wound closure; K45.8 Other specified abdominal hernia without obstruction or gangrene; R33.9 Retention of urine, unspecified; E53.8 Deficiency of other specified B group vitamins; Z90.3 Acquired absence of stomach [part of]; Z98.84 Bariatric surgery status; Z98.0 Intestinal bypass and anastomosis status; Z85.3 Personal history of malignant neoplasm of breast; M54.9 Dorsalgia, unspecified; G89.29 Other chronic pain; H91.90 Unspecified hearing loss, unspecified ear; H54.7 Unspecified visual loss; Z90.12 Acquired absence of left breast and nipple; Z88.8 Allergy status to other drugs, medicaments and biological substances; Z91.048 Other nonmedicinal substance allergy status; E78.5 Hyperlipidemia, unspecified; G31.84 Mild cognitive impairment of uncertain or unknown etiology
CPT/HCPCS: 36415; 74022 ×2; 74177; 80053; 81001; 83880; 85025; 86140; 99284; 99285; J7030; J7050 ×2; Q9967; 36600; 51702; 51703; 71260; 74018; 74018-26; 74019; 74019-26; 74240; 74240-26; 80048; 82150; 82803; 83690; 83735; 84100; 84443; 84484; 85027; 85610; 87040; 87070; 87075; 87077; 87186; 87205; 88307; 93041; 94002; 94762; A9270-GY; C9113; J0171; J0330; J0694; J1100; J1170; J1642; J2020; J2185; J2405; J2704; J2710; J2795; J3010; J3410; J3411; J3420; J3475; J7042; J7120; S0073